=== PATIENT | female | born 1940 | race African-American/Black ===

== ENCOUNTER 2017-10-19 16:51 | Emergency (ER) | payer MEDICARE, OTHER ==
[~2017-10-19] VITALS: Ht 162.6 cm; Wt 72.6 kg
[2017-10-19] MEDS ORDERED: SODIUM CHLORIDE 0.9% 1000ML 1,000 ML IV SCH (18:45)
[2017-10-19 20:08] VITALS: BP 132/70
== END 2017-10-19 20:24 | disposition home or self-care (01) ==
LOC: FSED 16:51
DX: R55 Syncope and collapse (principal); R11.0 Nausea; R10.84 Generalized abdominal pain; N39.0 Urinary tract infection, site not specified
CPT/HCPCS: 74018; 80053; 81003; 85025; 99283; J7030

== ENCOUNTER 2018-09-14 17:31 | Emergency (ER) | payer MEDICARE, OTHER ==
[~2018-09-14] VITALS: Ht 162.6 cm; Wt 62.6 kg
--- NOTE | 2018-09-14 18:21 | Diagnostic Imaging Report ---
EXAMINATION: CXR 2 VIEW - HOPD INDICATION: Cough. Congestion. ^[id number] ^1800 COMPARISON: None FINDINGS: TUBES and LINES: None. LUNGS: Surgical clips in the right hilar region with volume loss in the right chest. There is no evidence of pneumonia or pulmonary edema. PLEURA: No pleural effusion or pneumothorax. HEART AND MEDIASTINUM: The cardiomediastinal silhouette is unremarkable. BONES AND SOFT TISSUES: No acute osseous lesion. Soft tissues are unremarkable. UPPER ABDOMEN: No free air under the diaphragm. IMPRESSION: Surgical clips in the right hilar region with volume loss in the right chest Signed by: Dr. Roel Mendoza M.D. on 09/14/2018 6:18 PM
--- NOTE | 2018-09-14 18:42 | NUR ---
REPORT TO JOSE GOMES
--- NOTE | 2018-09-14 18:42 | NUR ---
assumed care of pt
[2018-09-14 19:04] VITALS: BP 153/82
== END 2018-09-14 18:56 | disposition home or self-care (01) ==
LOC: FSED 17:31
DX: J44.0 Chronic obstructive pulmonary disease with (acute) lower respiratory infection (principal); J20.8 Acute bronchitis due to other specified organisms
CPT/HCPCS: 71046; 83518; 87400; 99283

== ENCOUNTER 2018-10-06 18:57 | Inpatient (IN) | payer MEDICARE, OTHER ==
[~2018-10-06] VITALS: Ht 160 cm; Wt 65.8 kg
--- OUTSIDE RECORDS SUMMARY | 2018-10-06 19:00 | XMS REPORT | Clinical Summary ---
Author Author CRISTIANA [facility] Address Unknown Phone Unavailable Care Team Providers Care Educational Director Name Role Phone System, Provider Not In PCP Unavailable Allergies Comments Active Allergy Reactions Severity Noted Date bleeding Salicylates Other (See 04/04/2013 Comments) Penicillins Itching High 04/04/2013 Medications End Date Status Medication Sig Dispensed Refills Start Date Active loratadine (CLARITIN) 10 Take 10 mg by 0 mg tablet mouth daily. Active omeprazole (PRILOSEC) 40 Take 40 mg by 0 MG capsule mouth daily. Active ferrous sulfate 325 (65 Take 325 mg 0 FE) MG tablet by mouth 3 (three) times daily with meals. Active calcium carbonate Take 600 mg 0 (OS-JERONIMO) 600 mg (1,500 by mouth 2 mg) Tab (two) times daily with breakfast and dinner. Active tgfwxmgm-irfv-baj-folic Take by 0 acid mouth. (NVYFDVDJPTHA-DZSP-FFFKLF LS-FOLIC ACID) 3,500-18-0.4 unit-mg-mg Chew Active b complex vitamins tablet Take 1 tablet 0 by mouth daily. Active alendronate (FOSAMAX) 35 Take 35 mg by 0 MG tablet mouth every 7 days. Take in the morning with a full glass of water, on an empty stomach, and do not take anything else by mouth or lie down for the next 30 min. Active budesonide-formoterol Inhale 2 0 (SYMBICORT) 80-4.5 puffs by mcg/actuation inhaler mouth via inhaler 2 (two) times daily. Active simvastatin (ZOCOR) 10 MG Take 10 mg by 0 tablet mouth nightly. Active ascorbic acid (ASCORBIC Take 500 mg 0 ACID WITH ALEXYS HIPS) 500 by mouth MG tablet daily. Active cycloSPORINE (RESTASIS) 1 drop 2 0 0.05 % ophthalmic (two) times emulsion daily. Active albuterol (PROVENTIL) 2.5 Take 2.5 mg 0 mg /3 mL (0.083 %) by nebulizer solution nebulization every 6 (six) hours as needed. Active fluticasone (FLONASE) 50 1 spray by 0 mcg/actuation nasal spray Nasal route daily. Active famotidine (PEPCID) 20 MG Take 20 mg by 0 tablet mouth 2 (two) times daily. Active MULTIVIT WITH Take by 0 IRON-MINERALS mouth. (CENTRAVITES 50 PLUS ORAL) Active inhalational spacing Use with the 1 each 0 device (AEROCHAMBER) Spcr inhaler. 7 02/07/2018 albuterol HFA (VENTOLIN Inhale 2 1 Inhaler 0 HFA) 90 mcg/actuation puffs by 7 inhaler mouth via inhaler every 4 (four) hours as needed for Wheezing. Active Problems Not on file Social History Date Tobacco Use Types Packs/Day Years Used Former Smoker Smokeless Tobacco: Never Used Alcohol Use Drinks/Week oz/Week Comments No Sex Assigned at Date Recorded Not on file Industry Job Start Date Occupation Not on file Not on file Not on file Travel End Travel History Travel Start No recent travel history available. Last Filed Vital Signs Not on file Plan of Treatment Not on file Results Not on fileafter 10/05/2017 Insurance Payer Benefit Subscriber ID Type Phone Address Plan / Group [facility] - [facility] [place] [facility] [place] MEDICARE MGD CARE MEDICARE HMO
--- OUTSIDE RECORDS SUMMARY | 2018-10-06 19:00 | XMS REPORT ---
Author [facility] Address Unknown Phone Unavailable Care Team Providers Care Legal Clerk Name Role Phone TARYNLizetteENCE Unavailable Unavailable ZANA NAJERA Unavailable Unavailable Problems This patient has no known problems. Allergies, Adverse Reactions, Alerts This patient has no known allergies or adverse reactions. Medications This patient has no known medications. Encounters Start Date/Time End Date/Time Encounter Type Admission Type Attending [facility] Care Facility Care Department Encounter ID 2018-05-21 08:28:22 2018-05-21 08:28:22 Outpatient [facility] [id number] 2018-05-14 09:45:29 2018-05-14 09:45:29 Outpatient [facility] [id number] 2018-04-05 00:00:00 2018-04-05 00:00:00 Outpatient [facility] [id number] 2018-03-26 14:57:32 2018-03-26 14:57:32 Outpatient [facility] [id number] 2018-02-26 13:11:15 2018-02-26 13:11:15 Outpatient [facility] [id number] 2018-02-10 08:41:36 2018-02-10 08:41:36 Outpatient [facility] [id number] 2018-02-02 09:12:24 2018-02-02 09:12:24 Outpatient [facility] [id number] 2018-02-02 09:08:47 2018-02-02 09:08:47 Outpatient [facility] [id number] 2018-02-02 09:04:50 2018-02-02 09:04:50 Outpatient [facility] [id number] 2018-02-02 07:49:13 2018-02-02 07:49:13 Outpatient [facility] [id number] 2018-01-25 00:00:00 2018-01-25 00:00:00 Outpatient [facility] [id number] 2018-01-22 08:37:08 2018-01-22 08:37:08 Outpatient [facility] [id number] 2017-12-08 12:13:09 2017-12-08 12:13:09 Outpatient [facility] [id number] 2017-12-08 00:00:00 2017-12-08 00:00:00 Outpatient [facility] [id number] 2017-09-25 13:55:19 2017-09-25 13:55:19 Outpatient [facility] [id number] 2017-09-15 09:00:00 2017-09-15 09:00:00 Outpatient [facility] [id number] 2017-09-15 00:00:00 2017-09-15 00:00:00 Outpatient [facility] [id number] 2017-09-03 14:54:45 2017-09-03 14:54:45 Outpatient [facility] [id number] 2017-09-03 14:01:28 2017-09-03 14:01:28 Outpatient [facility] [id number] 2017-09-03 10:56:05 2017-09-03 10:56:05 Outpatient [facility] [id number] 2017-09-03 09:29:06 2017-09-03 09:29:06 Outpatient [facility] [id number] 2017-09-03 00:00:00 2017-09-03 00:00:00 Outpatient [facility] [id number] Results Test Description Test Time Test Comments Text Results Atomic Results Result Comments CXR 2 VIEW - HOPD 2018-09-14 18:16:00 [place] [address] Patient Name: JOSH ROCK MR #: [id number] : 1940 Age/Sex: 78/F Req #: [id number] Adm Physician: Ordered by: COLUMBA CENTENO MD Report #: [id number] Location: [facility] Room/Bed: Procedure: [id number] HOPD/CXR 2 VIEW - HOPD Exam Date: 09/14/18 Exam Time: 1800 REPORT STATUS: Signed EXAMINATION: CXR 2 VIEW - HOPD INDICATION: Cough. Congestion. [id number] 1800 COMPARISON: None FINDINGS: TUBES and LINES: None. LUNGS: Surgical clips in the right hilar region with volume loss in the right chest. There is no evidence of pneumonia or pulmonary edema. PLEURA: No pleural effusion or pneumothorax. HEART AND MEDIASTINUM: The cardiomediastinal silhouette is unremarkable. BONES AND SOFT TISSUES: No acute osseous lesion. Soft tissues are unremarkable. UPPER ABDOMEN: No free air under the diaphragm. IMPRESSION: Surgical clips in the right hilar region with volume loss in the right chest Signed by: Dr. Roel Mendoza M.D. on 09/14/2018 6:18 PM Dictated By: ROEL MENDOZA MD, MD 17 Transcribed By: JARROD on 09/14/181817 COPY TO: COLUMBA CENTENO MD CT, CHEST WITH IV CONTRAST- PE TEST DESIGN 2017-02-07 00:28:00 Reason for exam:- >COUGHsince last nightReason for exam:->CHEST PAINWhat is the patient's sedation requirement?->No Sedation FINAL REPORT EXAMINATION: CHEST CT / PE PROTOCOL CLINICAL HISTORY: CHEST PAIN, SHORTNESS OF BREATH COMPARISON EXAMINATION: NONE TECHNIQUE: Following the administration of I.V. contrast, axial images were acquired through the pulmonary arteries during the early arterial phase of imaging. Following a brief delay, additional axial tomographic images were acquired through the thorax. Following postprocessing, coronal and sagittal reformatted images were created and reviewed. The exam was performed according to our departmental dose optimization program which includes automated exposure control, adjustment of the mA and/or kV according to patient's size and/or use of iterative reconstructive technique. FINDINGS: Postoperative changes are noted in the left breast including multiple surgical clips. Emphysematous architectural distortion is noted including left apical bullous disease. Thin curvilinear subpleural opacities are noted in both lungs which are morphologically suggestive of scarring and/or subsegmental atelectasis. No evidence of a pneumonia, pulmonary edema, pleural effusion, pneumothorax or pneumomediastinum. There is mild nonspecific elevation of the right hem idiaphragm. The trachea is mildly dilated and ectatic. Senescent changes of aging are also noted involving the trachea and central airways. There is narrowing of the right mainstem bronchus, etiology indeterminant but likely chronic in nature. No evidence of a discrete endobronchial lesion or significant debris. No evidence of a discrete filling defect/embolus within the pulmonary arteries. Mild dilatation of the central pulmonary arteries is nonspecific but can be associated with pulmonary hypertension. The thoracic aorta is mildly ectatic but normal in caliber. No evidence of an aortic dissection. The heart is mild to moderately enlarged. No evidence of a pericardial effusion. The esophagus is decompressed. Small calcifications or surgical clips are noted in the mediastinum as well as the dependent portion of the right pleural space. No evidence of pathologically enlarged mediastinal or axillary lymph nodes. Limited images of the upper abdomen demonstrate multiple gallstones within the incomp letely visualized gallbladder. No definite evidence of an acute osseous abnormality. IMPRESSION: Emphysema. Thin curvilinear parenchymal lung opacities, nonspecific but morphologically suggestive of scarring and/or atelectasis. No evidence of a discrete pneumonia. Cardiac enlargement. Mild dilatation of the central pulmonary arteries, possible pulmonary arterial hypertension. No evidence of a PE. Cholelithiasis. Signed: Luc Grace MDReport Verified Date/Time: 02/07/2017 00:28:47 Reading Location: [address] Reading Room D-DIMER 2017-02-06 22:42:00 D-DIMER QUANTITATIVE (NING) (test cvao=674) 0.83 MG/L FEU <0.50 REGARDING D-DIMER RESULTS: Results of this D-Dimer test should always be interpr eted in conjunction with the patient's medical history, clinical presentation an d other findings. DVT clinical diagnosis should not be based on the results of I NNOVANCE D-Dimer alone.B-TYPE NATRIURETIC FACTOR (BNP)2017-02-06 22:09:00* Test Item Value Reference Range Comments B-TYPE NATRIURETIC PEPTIDE (NING) (test xgod=862) 19 pg/mL 0-100 RAD, CHEST, 2 [id number] 22:08:00Reason for exam:->COUGHsince last nightReason for exam:->CHEST PAINShould this be performed at the bedside?->No FINAL REPORT Examination: Two view Chest X-ray. CLINICAL HISTORY: Cough and chest pain COMPARISON: 11/04/2014 and 04/27/2010 The cardiac s ilhouette is within normal limits for size. The aorta is elongated. Postsurgica l changes are present in the right mid and upper chest and there is a stable jessica earance of the prominent bilateral stas. Also stable is blunting of the right co stophrenic sulcus, probably pleural thickening/scarring. There is no focal cons olidation, pneumothorax or acute bony abnormality. Surgical clips overlie the le ft breast which is asymmetrically small. IMPRESSION: No acute abnormality or sig nificant interval change from multiple previous examinations dating back to 2009. Signed: Alex Juares MDReport Verified Date/Time: 02/06/2017 22:08: 06 Reading Location: [address] Reading Room Electronically si gned by: ALEX JUARES M.D. on 02/06/2017 10:08 PM RAPID [id number] 22:05:00* Test Item Value Reference Range Comments RAPID CKMB (BEAKER) (test avwt=8751) 1.3 ng/mL 0.0-4.3 RAPID TROPONIN [id number] 22:05:00* Test Item Value Reference Range Comments RAPID TROPONIN I (BEAKER) (test yyfd=6789) < ng/mL <0.05 BASIC METABOLIC [id number] 22:03:00* Test Item Value Reference Range Comments SODIUM (BEAKER) (test uuzr=144) 140 meq/L 135-148 POTASSIUM (BEAKER) (test ihdy=306) 3.8 meq/L 3.6-5.5 CHLORIDE (BEAKER) (test rqvr=236) 101 meq/L 98-106 CO2 (BEAKER) (test gown=527) 29 meq/L 24-32 BLOOD UREA NITROGEN (BEAKER) (test nemt=011) 11 mg/dL 10-26 CREATININE (BEAKER) (test mhir=466) 0.83 mg/dL 0.50-1.20 GLUCOSE RANDOM (BEAKER) (test jbng=068) 88 mg/dL 70-110 CALCIUM (BEAKER) (test mlns=209) 9.2 mg/dL 8.5-10.5 EGFR (BEAKER) (test yoek=0896) 81 mL/min/1.73 sq m ESTIMATED GFR IS NOT ACCURATE CREATININE CLEARANCE IN PREDICTING GLOMERULAR FILTRATION RATE. ESTIMATED GFR IS NOT APPLICABLE FOR DIALYSIS PATIENTS. CBC W/PLT COUNT & AUTO [id number] 21:52:00* Test Item Value Reference Range Comments WHITE BLOOD CELL COUNT (BEAKER) (test hgjw=843) 6.6 10e3/ L 4.0-10.0 RED BLOOD CELL COUNT (BEAKER) (test vbha=105) 4.48 10e6/ L 4.00-5.00 HEMOGLOBIN (BEAKER) (test bnae=795) 9.2 g/dL 12.0-15.0 HEMATOCRIT (BEAKER) (test agzk=576) 30.2 % 36.0-45.0 MEAN CORPUSCULAR VOLUME (BEAKER) (test qmev=107) 67.5 fL 82.0-99.0 MEAN CORPUSCULAR HEMOGLOBIN (BEAKER) (test ptxq=773) 20.5 pg 27.0-33.0 MEAN CORPUSCULAR HEMOGLOBIN CONC (BEAKER) (test mtok=942) 30.4 g/dL 32.0-36.0 RED CELL DISTRIBUTION WIDTH (BEAKER) (test mkpj=005) 15.8 % 10.3-14.2 PLATELET COUNT (BEAKER) (test ovrn=835) 322 10e3/ L 150-430 MEAN PLATELET VOLUME (BEAKER) (test lodk=142) 8.8 fL 6.5-10.5 NEUTROPHILS RELATIVE PERCENT (BEAKER) (test czlp=836) 53 % LYMPHOCYTES RELATIVE PERCENT (BEAKER) (test gdww=450) 34 % MONOCYTES RELATIVE PERCENT (BEAKER) (test bxzn=758) 9 % EOSINOPHILS RELATIVE PERCENT (BEAKER) (test rzmx=539) 4 % BASOPHILS RELATIVE PERCENT (BEAKER) (test zzgq=643) 0 % NEUTROPHILS ABSOLUTE COUNT (BEAKER) (test zlzr=093) 3.47 10e3/ L 1.80-8.00 LYMPHOCYTES ABSOLUTE COUNT (BEAKER) (test mhss=237) 2.26 10e3/ L 1.48-4.50 MONOCYTES ABSOLUTE COUNT (BEAKER) (test vqfj=981) 0.58 10e3/ L 0.00-1.30 EOSINOPHILS ABSOLUTE COUNT (BEAKER) (test yfyn=445) 0.24 10e3/ L 0.00-0.50 BASOPHILS ABSOLUTE COUNT (BEAKER) (test mriz=743) 0.03 10e3/ L 0.00-0.20
[2018-10-06] MEDS ORDERED: SODIUM CHLORIDE 0.9% 1000ML 1,000 ML IV SCH (19:30)
--- NOTE | 2018-10-06 21:39 | Diagnostic Imaging Report ---
EXAMINATION: CT of the abdomen and pelvis with contrast. TECHNIQUE: Helical CT images of the abdomen and pelvis were performed from the lung bases to the lesser trochanters after the intravenous administration of 100 cc of Isovue 300 and the oral administration of none. Coronal and sagittal reformatted images were obtained.Dose modulation, iterative reconstruction, and/or weight based adjustment of the mA/kV was utilized to reduce the radiation dose to as low as reasonably achievable. COMPARISON: None. CLINICAL HISTORY:Lower abdominal pain DISCUSSION: ABDOMEN/PELVIS: LOWER THORAX:Unremarkable. HEPATOBILIARY: No focal hepatic lesions. No intra-or extrahepatic biliary ductal dilation. Cholecystectomy. SPLEEN: No splenomegaly. PANCREAS: No focal masses or ductal dilatation. ADRENALS: No adrenal nodules. KIDNEYS/URETERS: No hydronephrosis or solid mass lesions. 1.2 cm cyst in the right kidney. PELVIC ORGANS/BLADDER: Bladder is normal. Hysterectomy. PERITONEUM/RETROPERITONEUM: No free air or fluid. LYMPH NODES: No intra-abdominal, retroperitoneal, pelvic or inguinal lymphadenopathy. VESSELS: Vascular calcifications. GI TRACT: No obstruction. Diverticulosis without inflammatory change. The distal appendix measures 1 cm near in dimension with mild inflammatory change on axial image 49 and 50 BONES AND SOFT TISSUE: No bony destructive lesions. No soft tissue abnormalities. IMPRESSION: Mildly dilated appendix with mild inflammatory change may reflect appendicitis. Colonic diverticulosis without inflammatory change. Signed by: Dr. Ming Fritz M.D. on 10/06/2018 9:35 PM
[2018-10-06] MEDS ORDERED: ONDANSETRON HCL INJ 2MG/ML 2ML 2 MG/ML VIAL IV PRN (22:15)
[2018-10-06] MEDS ORDERED: MORPHINE SULFATE INJ 4 MG/ML INJ 1ML IV PRN (22:15)
--- OUTSIDE RECORDS SUMMARY | 2018-10-06 22:21 | XMS REPORT | Clinical Summary ---
Author Author CRISTIANA [facility] Address Unknown Phone Unavailable Care Team Providers Care Batch Tank Controller Name Role Phone System, Provider Not In [...] times daily with breakfast and dinner. Active pzsiondm-tosn-gbw-folic Take by 0 acid mouth. (WQKOLAQBRDMK-CWUE-KSGIOY LS-FOLIC ACID) 3,500-18-0.4 unit-mg-mg Chew Active b [...] Address Plan / Group [facility]ICA[facility] Medicaid CARE [facility] Contracted PLAN [facility] xxxxxxxxx MEDICARE MGD CARE MEDICARE HMO
--- NOTE | 2018-10-06 22:35 | NUR ---
New pyxsis being installed will not allow me to over ride to pull out any medications that have been placed in bins, medicaiotns are also not being loaded by pharmacy, Serge GOMES at main [facility] aware of situation
[2018-10-06] MEDS ORDERED: LEVOTHYROXINE50 MCG PO (23:19)
[2018-10-06] MEDS ORDERED: ADVAIR HFA 115-12 GM (23:19)
[2018-10-06] MEDS ORDERED: PROAIR HFA INH8.5 GM INH (23:19)
[2018-10-06] MEDS ORDERED: PEPCID20 MG (23:19)
[2018-10-06] MEDS ORDERED: SYMBICORT 16010.2 GM INH (23:19)
[2018-10-06] MEDS ORDERED: SIMVASTATIN40 MG PO (23:19)
[2018-10-06] MEDS: D5.45%NS/KCL 20MEQ 1,000 ML IV SCH (23:57)
[2018-10-06] MEDS: CIPROFLOXACIN 400 MG/D5W 200ML 200 ML IV SCH (23:57)
[2018-10-07] VITALS (7 sets, daily range): BP systolic 123–159; BP diastolic 63–74
[2018-10-07] MEDS: METRONIDAZOLE 500MG/NS 100ML 100 ML IV SCH ×5 (00:59→23:25)
[2018-10-07] MEDS ORDERED: CETIRIZINE HCL10 MG PO (01:33)
[2018-10-07] MEDS ORDERED: FLUTICASONE PRO16 GM NS (01:33)
[2018-10-07] MEDS ORDERED: ULTRAM 50MG50 MG PO (01:33)
[2018-10-07] MEDS ORDERED: ALENDRONATE SOD35 MG PO (01:33)
[2018-10-07] MEDS ORDERED: TYLENOL WITH C1 EACH PO (01:33)
[2018-10-07] MEDS ORDERED: ALBUTEROL0.63 MG/3 NEB (01:33)
[2018-10-07] MEDS ORDERED: GUAIFENESIN-CO118 ML PO (01:33)
[2018-10-07] MEDS ORDERED: CENTRUM SILVER1 EAC3 PO (01:33)
[2018-10-07] MEDS ORDERED: FERROUS SULFAT325 M1 PO (01:33)
[2018-10-07] MEDS ORDERED: AMITRIPTYLINE H25 MG PO (01:33)
[2018-10-07] MEDS ORDERED: KENALOG TOP (01:33)
[2018-10-07] MEDS ORDERED: LORATADINE10 MG PO (01:33)
[2018-10-07] MEDS ORDERED: CALCIUM 600 +1 EAC2 PO (01:33)
[2018-10-07] MEDS ORDERED: CYCLOBENZAPRINE10 MG PO (01:33)
[2018-10-07] MEDS: D5.45%NS/KCL 20MEQ 1,000 ML IV SCH ×3 (06:07→22:07)
[2018-10-07 07:08] LABS: BASOPHILS % 0.3 % (0.0-1.0); EOSINOPHILS # (AUTO) 0.3 (0.0-0.4); EOSINOPHILS % 4.2 % (0.0-6.0); HEMATOCRIT 29.6 % (34.2-44.1); HEMOGLOBIN 9.4 g/dL (12.0-16.0); LYMPHOCYTES # (AUTO) 2.2 (1.0-3.2); MEAN CORPUSCULAR HEMOGLOBIN 20.5 pg (28-32); MEAN CORPUSCULAR HGB CONC 31.8 g/dL (31-35); MEAN CORPUSCULAR VOLUME 64.6 fL (81-99); MONOCYTES # (AUTO) 0.5 (0.2-0.8); MONOCYTES % 8.4 % (4.4-11.3); NEUTROPHILS % 50.8 % (38.7-80.0); PLATELET COUNT 279 x10e3/uL (140-360); RED BLOOD COUNT 4.58 x10e6/uL (3.6-5.1); RED CELL DISTRIBUTION WIDTH 16.4 % (11.7-14.4)
[2018-10-07 07:26] LABS: ALANINE AMINOTRANSFERASE 9 IU/L (0-55); ALBUMIN 3.6 g/dL (3.5-5.0); ALBUMIN/GLOBULIN RATIO 1.3 (0.8-2.0); ALKALINE PHOSPHATASE 65 IU/L (40-150); ANION GAP 9.6 mmol/L (8-16); BLOOD UREA NITROGEN 6 mg/dL (7-26); BUN/CREATININE RATIO 8 (6-25); CALCIUM 9.3 mg/dL (8.4-10.2); CARBON DIOXIDE 26 mmol/L (22-29); CHLORIDE 109 mmol/L (98-107); CREATININE, SERUM 0.75 mg/dL (0.57-1.11); EST GLOMERULAR FILTRATION RATE > 60 ML/MIN (60-); GLUCOSE 99 mg/dL (74-118); POTASSIUM 3.6 mmol/L (3.5-5.1); SODIUM 141 mmol/L (136-145)
--- NOTE | 2018-10-07 07:35 | NUR ---
Rcvd patient in report this am. Patient is asleep in bed at this time. No s/s of distress noted
[2018-10-07] MEDS ORDERED: ONDANSETRON HCL INJ 2MG/ML 2ML 2 MG/ML VIAL IV PRN (08:15)
[2018-10-07] MEDS ORDERED: ACETAMINOPHEN 325 MG TAB PO PRN (08:15)
[2018-10-07] MEDS ORDERED: ALBUTEROL/IPRATROPIUM 3 ML NEB NEB PRN (08:15)
[2018-10-07] MEDS ORDERED: HYDRALAZINE HCL 20 MG/ML VIAL IV PRN (08:15)
[2018-10-07] MEDS ORDERED: TRAMADOL HCL 50 MG TAB PO PRN ×2 (08:15→08:30)
[2018-10-07 08:32] LABS: CLARITY,URINE CLEAR (CLEAR); COLOR,URINE YELLOW (YELLOW)
[2018-10-07 08:33] LABS: BILIRUBIN,URINE NEGATIVE (NEGATIVE); KETONES,URINE NEGATIVE (NEGATIVE); LEUKOCYTE ESTERASE ,URINE TRACE (NEGATIVE); NITRITE,URINE NEGATIVE (NEGATIVE); PROTEIN,URINE DIPSTICK NEGATIVE (NEGATIVE); URINE UROBILINOGEN 0.2 mg/dL (0.2 - 1)
[2018-10-07] MEDS: CIPROFLOXACIN 400 MG/D5W 200ML 200 ML IV SCH ×2 (08:43→21:08)
[2018-10-07] MEDS ORDERED: LEVOTHYROXINE SODIUM 50 MCG TAB PO SCH (09:00)
--- NOTE | 2018-10-07 09:30 | NUR ---
Patient is AAOx2. Some confusion at times. Very hard of hearing. Lung collins clear to auscultation. Bowel sounds present x4. Patient c/o pain in her abdomen in the middle after clear liquids. No nausea or vomiting noted. Family at bedside. Right AC iv in place. IV fluids infusing. Patient ambulates with assist
[2018-10-07 10:37] LABS: BACTERIA,URINE RARE /HPF; WBC,URINE (MAN) 0-5 /HPF (0-5)
[2018-10-07 10:38] LABS: EPITHELIAL CELLS,URINE RARE /LPF
[2018-10-07] MEDS: LORATADINE 10 MG TAB PO SCH (11:21)
[2018-10-07] MEDS: FLUTICASONE PROPIONATE NASAL SPRAY NS SCH (11:22)
[2018-10-07] MEDS ORDERED: ONDANSETRON HCL 4 MG ORAL DISINTEGRATING TAB PO PRN (14:00)
--- NOTE | 2018-10-07 14:14 | NUR ---
Patient tolerated her clear liquids for lunch. No c/o pain at this time. Family at bedside
--- NOTE | 2018-10-07 14:49 | Consultation ---
DATE OF CONSULTATION: 10/07/2018 HISTORY OF PRESENT ILLNESS: The patient is a 78-year-old female, who presents with complaints of abdominal pain. Says the pain is on the right side of her abdomen and right flank. She has not had any nausea or vomiting. She went to the emergency room and was evaluated. CT scan of the abdomen and pelvis, which revealed a prominent appendix with some slight inflammation around that. The patient says the pain has persisted, unchanged. She has not had any fever. PAST MEDICAL HISTORY: Significant for multiple medical problems; hypothyroidism, hypercholesterolemia, and chronic obstructive pulmonary disease. MEDICATIONS: She is on multiple medications, which are listed in the chart. ALLERGIES: PENICILLIN AND ASPIRIN. PAST SURGICAL HISTORY: She had multiple previous surgeries including lung surgery for cancer, hysterectomy, and cholecystectomy. FAMILY HISTORY: Noncontributory. SOCIAL HISTORY: The patient does not smoke cigarettes or drink alcohol. REVIEW OF SYSTEMS: She has not had any fever. No weight loss, no diarrhea. PHYSICAL EXAMINATION: GENERAL: The patient is awake and alert, in no distress. VITAL SIGNS: Normal. She is afebrile. HEENT: There is no scleral icterus. NECK: No masses. LUNGS: Equal breath sounds are clear bilaterally. CARDIAC: Regular rate and rhythm. Normal S1, S2 without murmur, S3, or S4. There is no jugular venous distention. ABDOMEN: Soft. There is mild right lower quadrant tenderness. There is no mass. There were no signs of peritonitis. There is no organomegaly. EXTREMITIES: Have no edema. NEUROLOGIC: Intact. LAB TESTS: White blood cell count at the [facility] was 7.2 with normal differential, hemoglobin 9.7, and hematocrit 30.9. Chemistries were essentially normal. ASSESSMENT: A 78-year-old female with abdominal pain with prominence of the appendix on CT scan, questionable inflammation around it. Clinical findings do not suggest acute appendicitis. PLAN: Plan is to observe the patient. She is anemic also, etiology of this is not clear. She was started on liquid diet. Plan to re-evaluate her later. At this point, there are no signs of peritonitis. No findings that would warrant immediate surgical intervention. Thank you for asking me to see Ms. Krishnan. MD TOMAS Ba/GABRIELE /[id number]
--- NOTE | 2018-10-07 16:00 | NUR ---
Call placed to Dr. Wade to inquire if we could advance patient's diet. Awaiting call back
[2018-10-07] MEDS: AMITRIPTYLINE HCL 25 MG TAB PO SCH (21:00)
[2018-10-07] MEDS: SIMVASTATIN 40 MG TAB PO SCH (21:08)
[2018-10-08] VITALS (8 sets, daily range): BP systolic 129–150; BP diastolic 69–81
[2018-10-08 03:26] LABS: BASOPHILS % 0.3 % (0.0-1.0); EOSINOPHILS # (AUTO) 0.3 (0.0-0.4); EOSINOPHILS % 5.6 % (0.0-6.0); HEMATOCRIT 30.6 % (34.2-44.1); HEMOGLOBIN 9.6 g/dL (12.0-16.0); LYMPHOCYTES # (AUTO) 2.3 (1.0-3.2); LYMPHOCYTES % 38.7 % (18.0-39.1); MEAN CORPUSCULAR HEMOGLOBIN 20.3 pg (28-32); MEAN CORPUSCULAR HGB CONC 31.4 g/dL (31-35); MEAN CORPUSCULAR VOLUME 64.6 fL (81-99); MONOCYTES # (AUTO) 0.5 (0.2-0.8); MONOCYTES % 8.8 % (4.4-11.3); NEUTROPHILS # (AUTO) 2.8 (2.1-6.9); NEUTROPHILS % 46.4 % (38.7-80.0); PLATELET COUNT 290 x10e3/uL (140-360); RED BLOOD COUNT 4.74 x10e6/uL (3.6-5.1); RED CELL DISTRIBUTION WIDTH 16.9 % (11.7-14.4)
[2018-10-08] MEDS: D5.45%NS/KCL 20MEQ 1,000 ML IV SCH (03:26)
[2018-10-08 03:45] LABS: ANION GAP 10.1 mmol/L (8-16); BLOOD UREA NITROGEN 8 mg/dL (7-26); BUN/CREATININE RATIO 10 (6-25); CALCIUM 9.1 mg/dL (8.4-10.2); CARBON DIOXIDE 25 mmol/L (22-29); CHLORIDE 110 mmol/L (98-107); CREATININE, SERUM 0.78 mg/dL (0.57-1.11); EST GLOMERULAR FILTRATION RATE > 60 ML/MIN (60-); GLUCOSE 101 mg/dL (74-118); POTASSIUM 4.1 mmol/L (3.5-5.1); SODIUM 141 mmol/L (136-145)
[2018-10-08 03:54] LABS: B-TYPE NATRIURETIC PEPTIDE2 36.1 pg/mL (0-100)
[2018-10-08 04:07] LABS: FREE T4 (FREE THYROXINE) 0.86 ng/dL (0.9-1.8); THYROID STIMULATING HORMONE 1.687 uIU/mL (0.350-4.940)
[2018-10-08 04:25] LABS: FERRITIN 422.71 ng/mL (4.63-204.00)
[2018-10-08 04:41] LABS: FOLATE 17.1 ng/mL (7.0-15.4)
[2018-10-08] MEDS: METRONIDAZOLE 500MG/NS 100ML 100 ML IV SCH ×4 (05:30→23:46)
[2018-10-08] MEDS: LEVOTHYROXINE SODIUM 25 MCG TABLET PO SCH (05:30)
[2018-10-08] MEDS: POLYETHYLENE GLYCOL 3350 17 GM PACK PO SCH (09:00)
[2018-10-08] MEDS: DOCUSATE SODIUM 100 MG CAP PO SCH ×2 (09:36→17:31)
[2018-10-08] MEDS: FERROUS SULFATE 325 MG TAB PO SCH ×2 (09:36→17:31)
[2018-10-08] MEDS: PANTOPRAZOLE SOD 40 MG TABEC PO SCH (09:36)
[2018-10-08] MEDS: LORATADINE 10 MG TAB PO SCH (09:36)
[2018-10-08] MEDS: ASCORBIC ACID 500 MG TAB PO SCH ×2 (09:36→17:31)
[2018-10-08] MEDS: FLUTICASONE PROPIONATE NASAL SPRAY NS SCH (09:49)
[2018-10-08] MEDS: CIPROFLOXACIN 400 MG/D5W 200ML 200 ML IV SCH ×2 (09:56→21:18)
--- NOTE | 2018-10-08 15:37 | NUR ---
IMM EXPLAINED TO PT, SIGNED BY PT AND PLACED IN CHART COPY TO PT IN CARE TRANSITIONS FOLDER
--- NOTE | 2018-10-08 19:20 | NUR ---
Received patient in bedside report. Patient is resting in bed at this time. A&Ox3. Very hard of hearing. Lung sounds clear. Bowel sounds active. No edema noted. Skin intact. R AC 20g IV is asymptomatic, intact, and patent. Patient reports pain to abdomen when she moves too much or when she coughs. Provided patient with extra pillow and explained that splinting with pillow may decrease pain during those times. Patient demonstrated understanding. SCDs in place. Bed locked in lowest position, side rails upx2, call light in reach.
[2018-10-08] MEDS: AMITRIPTYLINE HCL 25 MG TAB PO SCH (21:18)
[2018-10-08] MEDS: SIMVASTATIN 40 MG TAB PO SCH (21:18)
[2018-10-09] VITALS (8 sets, daily range): BP systolic 99–137; BP diastolic 57–69
[2018-10-09 03:27] LABS: BASOPHILS % 0.4 % (0.0-1.0); EOSINOPHILS # (AUTO) 0.3 (0.0-0.4); HEMATOCRIT 29.6 % (34.2-44.1); HEMOGLOBIN 9.4 g/dL (12.0-16.0); LYMPHOCYTES # (AUTO) 1.7 (1.0-3.2); MEAN CORPUSCULAR HEMOGLOBIN 20.6 pg (28-32); MEAN CORPUSCULAR HGB CONC 31.8 g/dL (31-35); MEAN CORPUSCULAR VOLUME 64.8 fL (81-99); MONOCYTES # (AUTO) 0.5 (0.2-0.8); MONOCYTES % 6.4 % (4.4-11.3); NEUTROPHILS # (AUTO) 4.5 (2.1-6.9); NEUTROPHILS % 64.9 % (38.7-80.0); PLATELET COUNT 298 x10e3/uL (140-360); RED BLOOD COUNT 4.57 x10e6/uL (3.6-5.1); RED CELL DISTRIBUTION WIDTH 16.4 % (11.7-14.4)
[2018-10-09 03:40] LABS: ANION GAP 11.2 mmol/L (8-16); BLOOD UREA NITROGEN 8 mg/dL (7-26); BUN/CREATININE RATIO 10 (6-25); CALCIUM 9.1 mg/dL (8.4-10.2); CARBON DIOXIDE 26 mmol/L (22-29); CHLORIDE 110 mmol/L (98-107); CREATININE, SERUM 0.79 mg/dL (0.57-1.11); EST GLOMERULAR FILTRATION RATE > 60 ML/MIN (60-); GLUCOSE 111 mg/dL (74-118); POTASSIUM 4.2 mmol/L (3.5-5.1); SODIUM 143 mmol/L (136-145)
--- NOTE | 2018-10-09 04:45 | NUR ---
Patient resting in bed at this time. Breathing even and non-labored. No S&S of distress at this time. Bed locked in lowest position, side rails upx2, call light in reach, family member at bedside.
[2018-10-09] MEDS: METRONIDAZOLE 500MG/NS 100ML 100 ML IV SCH ×3 (06:49→17:25)
[2018-10-09] MEDS: LEVOTHYROXINE SODIUM 25 MCG TABLET PO SCH (06:49)
--- NOTE | 2018-10-09 06:50 | NUR ---
MET PATIENT DURING BEDSIDE REPORT, PATIENT ALERT AND ORIENTED TO PERSON, PLACE, TIME, AND CIRCUMSTANCES. PATIENT SHOWS NO SIGNS OF DISTRESS.
[2018-10-09] MEDS: POLYETHYLENE GLYCOL 3350 17 GM PACK PO SCH (09:00)
[2018-10-09] MEDS ORDERED: SODIUM CHLORIDE 0.9% 250ML 250 ML ONE (09:53)
[2018-10-09] MEDS: DOCUSATE SODIUM 100 MG CAP PO SCH ×2 (09:56→17:25)
[2018-10-09] MEDS: FERROUS SULFATE 325 MG TAB PO SCH ×2 (09:56→17:25)
[2018-10-09] MEDS: ASCORBIC ACID 500 MG TAB PO SCH ×2 (09:56→17:25)
[2018-10-09] MEDS: PANTOPRAZOLE SOD 40 MG TABEC PO SCH (09:56)
[2018-10-09] MEDS: FLUTICASONE PROPIONATE NASAL SPRAY NS SCH (09:56)
[2018-10-09] MEDS: LORATADINE 10 MG TAB PO SCH (09:56)
[2018-10-09] MEDS: CIPROFLOXACIN 400 MG/D5W 200ML 200 ML IV SCH ×2 (10:53→21:58)
--- NOTE | 2018-10-09 11:50 | NUR ---
Patient's IV in her right forearm has become infiltrated, IV removed, warm compress applied to right forearm area.
--- NOTE | 2018-10-09 19:25 | NUR ---
Received patient in bedside report. Patient is A&Ox3, but very hard of hearing. Family member at bedside. Lung sounds clear, bowel sounds active, skin intact, slight edema noted to BLE, non-pitting. Skin intact. R hand 20g IV asymptomatic, intact, and patent. Bed locked in lowest position, call light in reach.
[2018-10-09] MEDS: SIMVASTATIN 40 MG TAB PO SCH (21:58)
[2018-10-09] MEDS: AMITRIPTYLINE HCL 25 MG TAB PO SCH (21:58)
[2018-10-10] VITALS (8 sets, daily range): BP systolic 110–161; BP diastolic 58–73
[2018-10-10] MEDS: METRONIDAZOLE 500MG/NS 100ML 100 ML IV SCH ×4 (00:50→17:53)
[2018-10-10 03:08] LABS: BASOPHILS % 0.3 % (0.0-1.0); EOSINOPHILS # (AUTO) 0.4 (0.0-0.4); EOSINOPHILS % 5.8 % (0.0-6.0); HEMATOCRIT 28.8 % (34.2-44.1); LYMPHOCYTES # (AUTO) 1.8 (1.0-3.2); LYMPHOCYTES % 29.4 % (18.0-39.1); MEAN CORPUSCULAR HEMOGLOBIN 20.3 pg (28-32); MEAN CORPUSCULAR HGB CONC 31.3 g/dL (31-35); MONOCYTES # (AUTO) 0.5 (0.2-0.8); MONOCYTES % 7.7 % (4.4-11.3); NEUTROPHILS # (AUTO) 3.4 (2.1-6.9); NEUTROPHILS % 56.6 % (38.7-80.0); PLATELET COUNT 248 x10e3/uL (140-360); RED BLOOD COUNT 4.43 x10e6/uL (3.6-5.1); RED CELL DISTRIBUTION WIDTH 16.6 % (11.7-14.4)
[2018-10-10 03:28] LABS: ALANINE AMINOTRANSFERASE 14 IU/L (0-55); ALBUMIN 3.5 g/dL (3.5-5.0); ALKALINE PHOSPHATASE 65 IU/L (40-150); ANION GAP 10.7 mmol/L (8-16); BILIRUBIN,DIRECT 0.5 mg/dL (0.0-0.5); BLOOD UREA NITROGEN 9 mg/dL (7-26); BUN/CREATININE RATIO 12 (6-25); CALCIUM 8.8 mg/dL (8.4-10.2); CARBON DIOXIDE 25 mmol/L (22-29); CHLORIDE 108 mmol/L (98-107); CREATININE, SERUM 0.78 mg/dL (0.57-1.11); EST GLOMERULAR FILTRATION RATE > 60 ML/MIN (60-); GLUCOSE 100 mg/dL (74-118); LIPASE 12 U/L (8-78); MAGNESIUM 1.9 MG/DL (1.3-2.1); POTASSIUM 3.7 mmol/L (3.5-5.1); SODIUM 140 mmol/L (136-145)
[2018-10-10] MEDS: LEVOTHYROXINE SODIUM 25 MCG TABLET PO SCH (05:55)
--- NOTE | 2018-10-10 07:27 | NUR ---
MET PATIENT AND HER DAUGHTER FOR BEDSIDE REPORT WITH OFF-GOING NURSE, JUAN, PATIENT DENIED PAIN, PATIENT ALERT AND ORIENT TO PERSON, PLACE, TIME, AND SITUATION, PATIENT SHOWS NO SIGNS OF DISTRESS.
[2018-10-10] MEDS: POLYETHYLENE GLYCOL 3350 17 GM PACK PO SCH (09:00)
[2018-10-10] MEDS: FLUTICASONE PROPIONATE NASAL SPRAY NS SCH (10:38)
[2018-10-10] MEDS: FERROUS SULFATE 325 MG TAB PO SCH ×2 (10:38→17:52)
[2018-10-10] MEDS: LORATADINE 10 MG TAB PO SCH (10:38)
[2018-10-10] MEDS: PANTOPRAZOLE SOD 40 MG TABEC PO SCH (10:38)
[2018-10-10] MEDS: DOCUSATE SODIUM 100 MG CAP PO SCH ×2 (10:38→17:52)
[2018-10-10] MEDS: ASCORBIC ACID 500 MG TAB PO SCH ×2 (10:39→17:52)
[2018-10-10] MEDS: CIPROFLOXACIN 400 MG/D5W 200ML 200 ML IV SCH ×2 (10:39→22:03)
--- NOTE | 2018-10-10 19:06 | NUR ---
Received patient in report. Patient is resting in bed at this time. Daughter at bedside. L hand 20g IV asymptomatic, intact, and patent. Bed locked in lowest position, side rails upx2, call light in reach.
[2018-10-10] MEDS: AMITRIPTYLINE HCL 25 MG TAB PO SCH (22:03)
[2018-10-10] MEDS: SIMVASTATIN 40 MG TAB PO SCH (22:03)
[2018-10-11] VITALS: BP 124/64
[2018-10-11] MEDS: METRONIDAZOLE 500MG/NS 100ML 100 ML IV SCH ×2 (00:36→06:07)
[2018-10-11 03:40] LABS: BASOPHILS % 0.7 % (0.0-1.0); EOSINOPHILS # (AUTO) 0.3 (0.0-0.4); EOSINOPHILS % 5.8 % (0.0-6.0); HEMATOCRIT 28.5 % (34.2-44.1); LYMPHOCYTES # (AUTO) 1.6 (1.0-3.2); LYMPHOCYTES % 26.7 % (18.0-39.1); MEAN CORPUSCULAR HEMOGLOBIN 20.4 pg (28-32); MEAN CORPUSCULAR HGB CONC 31.6 g/dL (31-35); MEAN CORPUSCULAR VOLUME 64.6 fL (81-99); MONOCYTES # (AUTO) 0.5 (0.2-0.8); MONOCYTES % 8.7 % (4.4-11.3); NEUTROPHILS # (AUTO) 3.4 (2.1-6.9); NEUTROPHILS % 57.9 % (38.7-80.0); PLATELET COUNT 244 x10e3/uL (140-360); RED BLOOD COUNT 4.41 x10e6/uL (3.6-5.1); RED CELL DISTRIBUTION WIDTH 16.4 % (11.7-14.4)
[2018-10-11 03:57] LABS: ANION GAP 9.6 mmol/L (8-16); BLOOD UREA NITROGEN 7 mg/dL (7-26); BUN/CREATININE RATIO 10 (6-25); CALCIUM 8.8 mg/dL (8.4-10.2); CARBON DIOXIDE 26 mmol/L (22-29); CHLORIDE 109 mmol/L (98-107); CREATININE, SERUM 0.73 mg/dL (0.57-1.11); EST GLOMERULAR FILTRATION RATE > 60 ML/MIN (60-); GLUCOSE 94 mg/dL (74-118); MAGNESIUM 1.8 MG/DL (1.3-2.1); POTASSIUM 3.6 mmol/L (3.5-5.1); SODIUM 141 mmol/L (136-145)
[2018-10-11 04:00] VITALS: BP 118/58
[2018-10-11] MEDS: LEVOTHYROXINE SODIUM 25 MCG TABLET PO SCH (06:07)
[2018-10-11] MEDS ORDERED: ASCORBIC ACID500 MG PO (06:59)
[2018-10-11] MEDS ORDERED: COLACE100 MG PO (06:59)
[2018-10-11] MEDS ORDERED: ZOFRAN4 MG PO (06:59)
[2018-10-11] MEDS ORDERED: ULTRAM 50MG50 MG PO (06:59)
[2018-10-11] MEDS ORDERED: PROTONIX40 MG/ML PO (06:59)
[2018-10-11] MEDS ORDERED: FERROUS SULFAT325 MG PO (06:59)
[2018-10-11] MEDS ORDERED: MIRALAX17 GM PO (06:59)
--- NOTE | 2018-10-11 07:10 | NUR ---
PT RESTING IN BED AA0X3. (HARD OF HEARING) DAUGHTER IS AT BEDSIDE. PT DENIES PAIN. IV TO THE RIGHT HAND WITH IV ABX RUNNING. SITE IS CLEAN AND DRY CALL LIGHT IS WITHIN EASY REACH, BED SIDE RAILSX2, BED WHEELS LOCKED, INSTRUCTED TO CALL FOR ASSISTANCE IF NEEDED
[2018-10-11 07:50] VITALS: BP 134/72
[2018-10-11 08:00] VITALS: BP 134/72
[2018-10-11] MEDS: ASCORBIC ACID 500 MG TAB PO SCH (08:00)
[2018-10-11] MEDS: LORATADINE 10 MG TAB PO SCH (08:00)
[2018-10-11] MEDS: DOCUSATE SODIUM 100 MG CAP PO SCH (08:00)
[2018-10-11] MEDS: FERROUS SULFATE 325 MG TAB PO SCH (08:00)
[2018-10-11] MEDS: PANTOPRAZOLE SOD 40 MG TABEC PO SCH (08:00)
[2018-10-11] MEDS: FLUTICASONE PROPIONATE NASAL SPRAY NS SCH (08:00)
[2018-10-11] MEDS: POLYETHYLENE GLYCOL 3350 17 GM PACK PO SCH (08:20)
--- NOTE | 2018-10-12 13:37 | Discharge Summary ---
ADMISSION DIAGNOSES: 1. Acute appendicitis. 2. Chronic obstructive pulmonary disease. 3. Hypothyroidism. 4. Gastroesophageal reflux disease. 5. Seasonal allergies. 6. Hyperlipidemia. 7. Anemia. DISCHARGE DIAGNOSES: 1. Acute appendicitis, rule out appendicitis. 2. Chronic obstructive pulmonary disease. 3. Hypothyroidism. 4. Gastroesophageal reflux disease. 5. Seasonal allergies. 6. Hyperlipidemia. 7. Anemia. 8. Rule out urinary tract infection. HISTORY: The patient has a history of hypothyroidism, GERD, seasonal allergies, COPD, hyperlipidemia, throat cancer, lung cancer, breast cancer. SURGICAL HISTORY: Cholecystectomy, partial hysterectomy, left breast lumpectomy. FAMILY HISTORY: The patient's sister had diabetes, cancer, and a stroke. The patient's mom also had a stroke. SOCIAL HISTORY: The patient admits to history of tobacco use, but denies any current use of alcohol, tobacco, or illicit drugs. HOSPITAL COURSE: A 78-year-old female complains of intermittent dull periumbilical tenderness that began last weekend. Around Thursday, the pain radiated to her right lower quadrant. Pain is worse with leaning forward. She denies nausea, vomiting, diarrhea, and fever. On admission, the patient had a CT of the abdomen that showed mildly dilated appendix with mild inflammatory change may reflect appendicitis, colonic diverticulosis without inflammatory change. UA showed leukocytes. The patient was started on IV antibiotics. Surgery was consulted, who did not think that the patient had appendicitis. The patient had intermittent rebound tenderness for a couple of days. GI was then consulted since Surgery did not think surgery was necessary. GI said they can do an EGD and colonoscopy outpatient. After a few days of IV antibiotics, the patient is feeling much better, tolerating her diet and ready to discharge home. Family and the patient understand discharge instructions and agrees to plan. Vital signs stable, the patient afebrile. Dictated by Jammie Herrera NP MD RAMEZ Schumacher/GABRIELE /[id number]
== END 2018-10-11 08:40 | disposition home or self-care (01) | DRG 394 ==
LOC: FSED 18:57 → ERHOLD 22:07 → INTOOBSV 22:07 → MED/SURG 23:35 → OBSVTOIN 10-09 16:18
PROVIDERS: ADMIT Internal Medicine; ATTEND Internal Medicine
DX: K35.80 Unspecified acute appendicitis (principal); N39.0 Urinary tract infection, site not specified; J44.9 Chronic obstructive pulmonary disease, unspecified; E03.9 Hypothyroidism, unspecified; K21.9 Gastro-esophageal reflux disease without esophagitis; E78.5 Hyperlipidemia, unspecified; D64.9 Anemia, unspecified; J30.2 Other seasonal allergic rhinitis; Z85.21 Personal history of malignant neoplasm of larynx; Z87.891 Personal history of nicotine dependence; Z85.3 Personal history of malignant neoplasm of breast
CPT/HCPCS: 36415; 74177; 80048; 80053; 80076; 81001; 81003; 82270; 82607; 82728; 82746; 83036; 83540; 83605; 83690; 83735; 83880; 84439; 84443; 84466; 84484; 85025; 87086; 93005; 96361; 99284; G0378; J7050

== ENCOUNTER → 2018-11-02 | Day surgery (SDC) | payer MEDICARE ==
[~2018-11-02] MED LIST: ADVAIR HFA 115-12 GM; ALBUTEROL0.63 MG/3 NEB; ALENDRONATE SOD35 MG PO; AMITRIPTYLINE H25 MG PO; ASCORBIC ACID500 MG PO; CALCIUM 600 +1 EAC2 PO; CENTRUM SILVER1 EAC3 PO; CETIRIZINE HCL10 MG PO; COLACE100 MG PO; CYCLOBENZAPRINE10 MG PO; FERROUS SULFAT325 M1 PO; FERROUS SULFAT325 MG PO; FLUTICASONE PRO16 GM NS; GLYCOPYRROLATE INJ 1MG/ 5 ML SYR ONE; GUAIFENESIN-CO118 ML PO; KENALOG TOP; LEVOTHYROXINE50 MCG PO; LORATADINE10 MG PO; MIDAZOLAM HCL 2 MG/2 ML VIAL ONE; MIRALAX17 GM PO; PEPCID20 MG; PROAIR HFA INH8.5 GM INH; PROPOFOL IV EMULSION 10 MG/ML 50 ML VIAL ONE; PROTONIX40 MG/ML PO; SIMVASTATIN40 MG PO; SYMBICORT 16010.2 GM INH; TYLENOL WITH C1 EACH PO; ULTRAM 50MG50 MG PO; ZOFRAN4 MG PO
--- OUTSIDE RECORDS SUMMARY | 2018-11-02 09:48 | XMS REPORT | Clinical Summary ---
Author Author [facility] Address Unknown Phone Unavailable Care Team Providers Care Financial Operations Clerk Name Role Phone System, Provider Not In [...] times daily with breakfast and dinner. Active ofbxzemi-tqfu-xlu-folic Take by 0 acid mouth. (GKPRXXNDMNIY-KMSZ-NXXBWZ LS-FOLIC ACID) 3,500-18-0.4 unit-mg-mg Chew Active b [...] Not on file Results Not on fileafter 11/01/2017 Insurance Payer Benefit Subscriber ID Type Phone Address Plan / Group MEDICAID [facility] Medicaid CARE [facility] [place] Contracted PLAN [facility] xxxxxxxxx MEDICARE MGD CARE MEDICARE HMO
[2018-11-02 14:00] VITALS: BP 129/66
[2018-11-02 14:42] LABS: % IRON SATURATION 14 % (15-50); IRON 34 ug/dL (50-170); TOTAL IRON BINDING CAPACITY 238 ug/dL (261-478); TRANSFERRIN 170 mg/dL (180-382)
--- NOTE | 2018-11-02 20:30 | Operative Report ---
DATE OF PROCEDURE: 11/02/2018 SURGEON: Lexx Goyal MD PROCEDURES: Esophagogastroduodenoscopy with biopsies and colonoscopy with polypectomy and biopsies. INDICATIONS FOR EGD: Dyspepsia. INDICATIONS FOR COLONOSCOPY: Anemia. MEDICATIONS: The patient was done under MAC, please see anesthesiologist's note. PROCEDURE IN DETAIL: With the patient in left lateral decubitus position, a flexible fiberoptic Olympus gastroscope was introduced into the esophagus under direct visualization without any difficulty. There was some patchy erythema noted in distal esophagus. The scope was then advanced with ease into the stomach. Mucosa overlying the antrum and the body revealed some diffuse erythema and ulwg-mg-gxhnpgpj edema and biopsies were obtained, sent to stain for H pylori. The pylorus was somewhat stenotic, but it opened up nicely with repetitive intubations with the scope which was advanced all the way to the second portion of the duodenum. The scope was then withdrawn slowly, mucosa overlying the proximal second portion and duodenal bulb grossly appeared to be within normal limits. The scope was then withdrawn back into the stomach and retroflexed and mucosa overlying the fundus and cardia appeared to be within normal limits. The scope was then straightened out. The stomach was decompressed and it was subsequently withdrawn. The patient tolerated the procedure well. IMPRESSION: 1. Distal esophagitis, mild. 2. Gastritis, biopsied. Biopsies sent to stain for Helicobacter pylori. PLAN: Follow up histology. Initiate Protonix 40 mg one p.o. q.a.m. a.c. PROCEDURE IN DETAIL: The patient was then turned around after adequate lubrication of the anal canal, flexible fiberoptic Olympus colonoscope was inserted into the rectum with ease and advanced all the way to the cecum. Mucosa overlying the cecum appeared to be within normal limits. Diverticular disease was noted to be scattered throughout, but more pronounced in the left colon. A polypoid lesion approximately 6 mm in size that was sessile with yellowish over hue suspicious for lipoma, was biopsied. The transverse and descending other than for diverticular disease appeared to be within normal limits. Three polyps were removed per hot biopsy forceps on the sigmoid. The rectum appeared to be within normal limits. The scope was then retroflexed into the distal rectum and small internal hemorrhoids were noted, none of which was actively bleeding. The scope was then straightened out, it was subsequently withdrawn. The patient tolerated the procedure well. IMPRESSION: 1. [place] diverticulosis. 2. Rule out lipoma, ascending colon. 3. Sigmoid colon polyps x3, hot biopsied. 4. Internal hemorrhoids, none actively bleeding. PLAN: Follow up histology. Initiate high-fiber, low-fat diet. Initiate high-fiber supplement. The patient might benefit from a followup colonoscopy in 3 to 5 years. Lexx Goyal MD [facility] [place] /[id number] cc: Dr. Najera
== END | disposition home or self-care (01) ==
LOC: OR 09:38
PROVIDERS: ATTEND Internal Medicine Gastroenterology
DX: D64.9 Anemia, unspecified (principal); K63.5 Polyp of colon; K29.70 Gastritis, unspecified, without bleeding; K20.9 Esophagitis, unspecified; K57.30 Diverticulosis of large intestine without perforation or abscess without bleeding; K21.9 Gastro-esophageal reflux disease without esophagitis; K59.09 Other constipation; K64.8 Other hemorrhoids; J45.909 Unspecified asthma, uncomplicated; G47.33 Obstructive sleep apnea (adult) (pediatric); R03.0 Elevated blood-pressure reading, without diagnosis of hypertension; Z88.6 Allergy status to analgesic agent; Z88.0 Allergy status to penicillin; Z87.891 Personal history of nicotine dependence
CPT/HCPCS: 36415; 43239; 45380; 45384; 83540; 84466; 85045; J2250; J2704; J3490; 45378

== ENCOUNTER 2020-02-05 10:01 | Emergency (ER) | payer MEDICARE, OTHER ==
[~2020-02-05] VITALS: Ht 162.6 cm; Wt 63.5 kg
[~2020-02-05 10:01] MED LIST changes: -GLYCOPYRROLATE INJ 1MG/ 5 ML SYR ONE; -MIDAZOLAM HCL 2 MG/2 ML VIAL ONE; -PROPOFOL IV EMULSION 10 MG/ML 50 ML VIAL ONE
--- OUTSIDE RECORDS SUMMARY | 2020-02-05 11:03 | XMS REPORT | Continuity of Care Document ---
Author Author [facility] t Organization [facility] Address [facility] [address] [place] [address] Phone Unavailable Care Team Providers Care Stock Pitcher Name Role Phone NONSTAFF PCP Unavailable Gurdeep BINGHAM, A Amanda Attphys Dania YANG, P Ashely Attphys [phone] Khushbu BAILEY Attphys Unavailable Lizette CENTENOENCE Attphys Unavailable ZANA NAJERA Attphys Unavailable Payers Payer Name Policy Type Policy Number Effective Date Expiration Date [place] [employer] MEDICAREUHC MEDICARE COMPLETExxxxxxxxx2019-05/31/[id number] [address] xxxxxxxxx 2019 00:00:00 2020 23:59:59 H [facility] COMMUN ITY PLAN [id number] [address] xxxxxxxxx 2011 00:00:00 Barron Sesay [facility] [id number] 2018 00:00:00 [facility] [id number] 2011 00:00 :[address] [facility] Problems Condition Name Condition Details Condition Category Status Onset Date Resolution Date Last Treatment Date Treating Clinician Comments Source Biliary colic Biliary colic Disease Active 2017-07-24 00:00:00 Overview: Added automatically from request for surgery [id number] [facility] Calculus of gallbladder without cholecystitis without obstruction Calculus of gallbladder without cholecystitis without obstruction Disease Active 2017-07-24 00:00:00 Overview: Added automaticall y from request for surgery [id number] [facility] Cervical radiculopathy Cervical radiculopathy Disease Active 2017-04-09 00:00:00 [facility] Hypoxia Hypoxia Disease Active 2014-06-26 00:00:00 [facility] Breast cancer Breast cancer Disease Active 2013-05-26 00:00:00 [facility] COPD (chronic obstructive pulmonary disease) COPD (chr onic obstructive pulmonary disease) Disease Active 2012-01-02 00:00:00 [facility] Upper respiratory infection Upper respiratory infection Disease Active 2011-09-16 00:00:00 [facility] History of lung cancer History of lung cancer Disease Active 2011-04-14 00:00:00 [facility] Anemia in chronic illness Anemia in chronic illness Disease Ac tive 2011-04-14 00:00:00 [facility] BMI 26.0-26.9,adult BMI 26.0-26.9,adult Disease Active 2011-04-14 00:00 :00 [facility] 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 Disease Active 2010-03-29 00:00:00 [facility] Lung cancer Lung cancer Disease Active 2009-09-13 00:00:00 Overview: Stage IA ([id number]) Lung adenoCA*03/08/09: CT chest: 9 mm nodule in RUL*05/07/09: RULobectomy with 1.2 cm adenoCA, negative margins (0.1 cm), +lymphatic invasion, no vascular or perineural invasion, 0/6 LN's [facility] Hyperlipidemia Hyperlipidemia Disease Active 2009-07-27 00:00:00 [facility] History of laryngeal cancer History of laryngeal cancer Disease Active 2009-02-19 00:00:00 [facility] Personal history of breast cancer Personal history of breast can cer Disease Active 2009-02-19 00:00:00 [facility] GERD (gastroesophageal reflux disease) GERD (gastroesophagea l reflux disease) Disease Active 2007-05-28 00:00:00 [facility] Anemia, hemolytic, thalassemia minor Anemia, hemolytic, thal assemia minor Disease Active 2006-07-17 00:00:00 [facility] Deafness Deafness Disease Active 2006-07-17 00:00:00 Overview: Longstanding since high school - reads [facility] Allergies, Adverse Reactions, Alerts Allergy Name Allergy Type Status Severity Reaction(s) Onset Date Inacti ve Date Treating Clinician Comments Source Penicillin Allergy to Substance Active Moderate 2017-10-19 00:00:0 0 [facility] Aspirin Allergy to Substance Active Moderate 2017-10-19 00:00:00 [facility] Salicylates Drug Intolerance Active Other (See Comments) 2013-04-04 00:00:00 bleeding [facility] Penicillins Drug Allergy Active Itching 2013-04-04 00:00:00 [facility] Aspirin Propensity to adverse reactions to drug Active 2009-05-17 00:00:00 Bleeding [facility] Penicillins Propensity to adverse reactions to drug Active 2006-07-17 00:00:00 Itch [facility] Family History Family Member Diagnosis Comments Start Date Stop Date Source Natural brother Hypertension [facility] Natural brother Pulmonary [facility] alth Natural mother Arthritis [facility] Natural mother Asthma [facility] Natural sister Diabetes [facility] Natural sister Hypertension [facility] Social History Social Habit Start Date Stop Date Quantity Comments Source Sex Assigned At [facility] Cigarettes smoked current (pack per day) - Reported 00:00:00 2020-02-03 00:00:00 [facility] Cigarette pack-years 2020-02-03 00:00:00 2020-02-03 00:00:00 [facility] Alcohol intake 2020-02-03 00:00:00 2020-02-03 00:00:00 Current non-drinker of alcohol (finding) [facility] History SDOH Food Worry 2017-05-11 00:00:00 2017-05-11 00[facility]00[facility] 2017-05-11 00:00:00 2017-05-11 00:00:00 1 [facility] History of tobacco use 2002-07-17 00:00:00 Current smoker [facility] Smoking Status Start Date Stop Date Source Former smoker 2020-02-03 00:00:00 2020-02-03 00:00:00 [facility] Medications Ordered Medication Name Filled Medication Name Start Date Stop Da te Current Medication? Ordering Clinician Indication Dosage Frequency Signature (SIG) Comments Components Source pantoprazole (PROTONIX) 40 mg delayed release tablet 2 00:00:00 Yes Gastroesophageal reflux disease, esophagitis presence not specified TAKE 1 TABLET BY MOUTH EVERY MORNING BEFORE MEALS. [facility] simvastatin (ZOCOR) 10 mg tablet 2019-09-05 00:00:00 Yes Hyperlipidemia, unspecified hyperlipidemia type TAKE 1 T ABLET BY MOUTH EVERY NIGHT AT BEDTIME FOR CHOLESTEROL. - generic ok. [facility] levothyroxine (SYNTHROID) 25 mcg tablet 2019-07-22 00:00:00 Yes Subclinical hypothyroidism 25ug QD Take 1 tablet by mouth daily. [facility] budesonide-formoterol (SYMBICORT HFA) 80-4.5 mcg/actuation i nhaler 2019-07-22 00:00:00 Yes Chronic obstructive pulmonar y disease, unspecified COPD type 2{puff} Q.5D Inhale 2 Puffs by mouth 2 times daily. [facility] albuterol 90 mcg/actuation inhaler 2019-07-22 00:00:00 Yes Chronic obstructive pulmonary disease, unspecified COPD type 2{puff} Inhale 2 Puffs by mouth 4 times daily as needed for Wheezing. [facility] alendronate (FOSAMAX) 35 mg tablet 2019-07-22 00:00:00 Yes Medicine refill TAKE 1 TABLET BY MOUTH WEEKLY TO PREVENT OSTEOP OROSIS.. [facility] pantoprazole (PROTONIX) 40 mg delayed release tablet 2019-07-22 00:00:00 2020-01-12 00:00:00 No Gastroesophageal ref lux disease, esophagitis presence not specified TAKE 1 TABLET BY MOUTH EVERY MORNING BEFORE MEALS. [facility] pantoprazole (PROTONIX) 40 mg delayed release tablet 2019-05-10 00:00:00 2019-07-22 00:00:00 No TAKE 1 TABLET BY MOUTH EVERY MORNING BEFORE MEALS [facility] levothyroxine (SYNTHROID) 25 mcg tablet 00:00:00 2019-07-22 00:00:00 No Subclinical hypothyroidism 25ug QD Brendan e 1 tablet by mouth daily. [facility] fluticasone propionate (FLONASE) 50 mcg/actuation nasal spra y 2018-12-03 00:00:00 Yes Sinus headache 1{spray} QD Use 1 [place] in each nostril daily. [facility] simvastatin (ZOCOR) 10 mg tablet 2018-12-03 00:00:00 2019-08 00:00:00 No Hyperlipidemia, unspecified hyperlipidemia type TAKE 1 TABLET BY MOUTH EVERY NIGHT AT BEDTIME FOR CHOLESTEROL. - generic ok. [facility] Ascorbic Acid 500 Mg Tablet Ascorbic Acid 500 Mg Tablet 2018-10-11 00:00:00 Yes Jammie [employer] 500 Twice A Day [facility] Docusate Sodium (Colace) 100 Mg Cap Docusate Sodium (Colace) 100 Mg Cap 2018-10-11 00:00:00 Yes Jammie [employer] 100 Twice A Day [facility] Ferrous Sulfate 325 Mg Tablet Ferrous Sulfate 325 Mg Tablet 2018 00:00:00 Yes Jammie [employer] 325 Twice Daily With Meals [facility] Ondansetron Hcl (Zofran*) 4 Mg Tablet Ondansetron Hcl (Zofra n*) 4 Mg Tablet 2018-10-11 00:00:00 Yes Jammie [employer] 4 Every 8 Hours as needed for Nausea And Vomiting [facility] Pantoprazole Sod (Protonix) 40 Mg/Ml Susp Pantoprazole Sod (Protonix) 40 Mg/Ml Susp 2018-10-11 00:00:00 Yes Jammie [employer] 40 Before Breakfast [facility] Polyethylene Glycol 3350 (Miralax) 17 Gm Powd.pack Gianfranco yethylene Glycol 3350 (Miralax) 17 Gm Powd.pack 2018-10-11 00:00:00 Yes Jammie [employer] 17 Daily [facility] Tramadol Hcl (Ultram 50MG*) 50 Mg Tab Tramadol Hcl (Ultram 5 0MG*) 50 Mg Tab 2018-10-11 00:00:00 Yes Jammie [employer] 50 Twice A Day as needed for Pain [facility] VITAMIN C & E COMBINATION OR 2018-05-21 08:40:48 Yes None Entered [facility] CALCIUM 600 + D(3) OR 2018-05-21 08:40:48 Yes None Entered [facility] CENTRUM SILVER TAB 2018-05-21 08:40:48 Yes N one Entered [facility] cyclosporine (RESTASIS) 0.05 % ophthalmic drops 2018-05-21 08:40 :48 Yes 1[drp] Q.5D 1 Drop 2 times daily. [facility] budesonide-formoterol (SYMBICORT HFA) 80-4.5 mcg/actuation i nhaler 2018-02-02 00:00:00 2019-07-22 00:00:00 No Chronic obst ructive pulmonary disease, unspecified COPD type 2{puff} Q.5D Inhale 2 Puffs by mouth 2 times leeann y. [facility] alendronate (FOSAMAX) 35 mg tablet 2018-02-02 00:00:00 00:00:00 No Medicine refill TAKE 1 TABLET BY MOUTH WEEKLY T O PREVENT OSTEOPOROSIS.. [facility] Diclofenac Sodium (VOLTAREN) 1 % Gel 2017-12-08 00:00:00 Yes Chronic left shoulder pain Apply to affected area Use twice daily a s needed for pain. [facility] albuterol 90 mcg/actuation inhaler 2017-12-08 00:00:00 00:00:00 No Chronic obstructive pulmonary disease, unspecified COPD type 2{p uff} Inhale 2 Puffs by mouth 4 times daily as needed for Wheezing. [facility] traMADol (ULTRAM) 50 mg tablet 2017-09-16 00:00:00 Yes Biliary colic 50mg Take 1 tablet by mouth every 6 hours as needed for Pain. [facility] codeine-guaiFENesin (CHERATUSSIN AC) 10-100 mg/5 mL syrup 2017-02-13 00:00:00 Yes 5mL Take 5 mL by mouth 3 times daily as needed for Cough. [facility] inhalational spacing device (AEROCHAMBER) Spcr 2017-02-07 00:00: 00 Yes Use with the inhaler. [facility] famotidine (PEPCID) 20 MG tablet 2017-02-06 21:29:02 Yes 20mg Q.5D Take 20 mg by mouth 2 (two) times daily. [facility] MULTIVIT WITH IRON-MINERALS (CENTRAVITES 50 PLUS ORAL) 2017-02-06 21:29:02 Yes Take by mouth. [facility] ferrous sulfate 325 mg (65 mg iron) tablet 2016-04-16 00:00: 00 Yes Anemia, unspecified 325mg QD Take 1 tablet by mouth daily (with breakfast) . [facility] acetaminophen-codeine (TYLENOL/CODEINE #3) 300-30 mg per tab let 2015-04-03 00:00:00 Yes Primary osteoarthritis of left shoulder 1{tbl} Take 1 tablet by mouth every 6 hours as needed for Pain. [facility] cyclobenzaprine (FLEXERIL) 10 mg tablet 2015-04-03 00:00:00 Yes Primary osteoarthritis of left shoulder 10mg Take 1 t ablet by mouth nightly at bedtime as needed (pain). [facility] CPAP Device 2014-11-02 00:00:00 Yes REGINA (obstruct uzair sleep apnea) Use device as directed. Date of Study: 08/26/14Diagnosis: REGINA 327.23REM AHI: 17 (AHI=5.6) SaO2 emily: 81%CPAP Pressure: 10 cm H2O with heated humidifier: Yes with mask (fit to patient) and supplies as needed: YesChin Strap: Yes. [facility] ferrous sulfate 325 mg (65 mg iron) tablet 2014-03-07 00:00: 00 Yes Anemia in chronic illness 325mg QD Take 1 tablet by jami th daily (with breakfast) TAKE WITH FOOD. [facility] predniSONE (DELTASONE) 20 mg tablet 2013-09-12 00:00:00 Yes COPD exacerbation Use 2 tabs daily for 5 days then use 1 tab daily for 5 days then use 1/2 tab daily for 5 days. [facility] albuterol (PROVENTIL) 2.5 mg /3 mL (0.083 %) nebulizer solut ion 2013-08-25 14:29:01 Yes 2.5mg Take 2.5 m g by nebulization every 6 (six) hours as needed. [facility] fluticasone (FLONASE) 50 mcg/actuation nasal spray 2013-07 14:29:01 Yes 1{spray} QD 1 spray by Nasal route daily. [facility] traMADol (ULTRAM) 50 mg tablet 2013-08-03 00:00:00 Yes Musculoskeletal disorder 50mg Take 1 tablet by mouth 2 times daily as needed for Pain. [facility] cetirizine (ZYRTEC) 10 mg tablet 2013-08-03 00:00:00 Yes Sinus headache 10mg QD Take 1 tablet by mouth daily. [facility] albuterol (PROVENTIL) 2.5 mg /3 mL (0.083 %) nebulizer solut ion 2013-04-18 00:00:00 Yes COPD (chronic obstructive pulmonary dise ase) 2.5mg Inhale 3 mL by mouth every 6 hours as needed for Wheezing or Shortness of Breath. [facility] loratadine (CLARITIN) 10 mg tablet 2013-04-13 00:00:00 Yes Allergic rhinitis, cause unspecified 10mg QD Take 1 tablet by mouth daily. [facility] amitriptyline (ELAVIL) 25 mg tablet 2013-04-13 00:00:00 Yes Left upper extremity numbness 25mg Take 1 tablet by mouth at bedtime. [facility] loratadine (CLARITIN) 10 mg tablet 2013-04-04 14:52:49 Yes 10mg QD Take 10 mg by mouth daily. [facility] omeprazole (PRILOSEC) 40 MG capsule 2013-04-04 14:52:49 Yes 40mg QD Take 40 mg by mouth daily. [facility] ferrous sulfate 325 (65 FE) MG tablet 2013-04-04 14:52:49 Y es 325mg Take 325 mg by mouth 3 (three) times daily with meals. [facility] calcium carbonate (OS-JERONIMO) 600 mg (1,500 mg) Tab 2013-04-04 14:52:49 Yes 600mg Take 600 mg by mouth 2 (two) times daily with breakfast and dinner. [facility] ooofgepb-eufh-oee-folic acid (MULTIVITAM SZ-LYXW-PYBHAFYJ-FOLIC ACID) 3,500-18-0.4 unit-mg-mg Chew 2013-04-04 14:52:49 Yes Take by mouth. [facility] tablet 2013-04-04 14:52:49 Yes 1{tbl} QD Take 1 tablet by mouth daily. [facility] alendronate (FOSAMAX) 35 MG tablet 2013-04-04 14:52:49 Yes 35mg Take 35 mg by mouth every 7 days. Take in the morning with a full glass of water, on an empty stomach, and do not take anything else by mouth or lie down for the next 30 min. [facility] budesonide-formoterol (SYMBICORT) 80-4.5 mcg/actuation inhal er 2013-04-04 14:52:49 Yes 2{puff} Q.5D Inhale 2 p uffs by mouth via inhaler 2 (two) times daily. [facility] simvastatin (ZOCOR) 10 MG tablet 2013-04-04 14:52:49 Yes 10mg QD Take 10 mg by mouth nightly. [facility] ascorbic acid (ASCORBIC ACID WITH ALEXYS HIPS) 500 MG tablet 2013-04-04 14:52:49 Yes 500mg QD Take 500 mg by mouth daily. [facility] cycloSPORINE (RESTASIS) 0.05 % ophthalmic emulsion 2013-04 14:52:49 Yes 1[drp] Q.5D 1 drop 2 (two) times daily. [facility] FERROUS SULFATE 325 mg (65 mg iron) delayed release tablet 2013-01-21 00:00:00 Yes Medication refill 325mg [id number] Take 1 tablet by mouth 3 times daily with meals. [facility] triamcinolone (KENALOG) 0.1 % topical cream 2012-05-03 00:00 :00 Yes Eczema Q.5D Apply to affected area 2 times daily. [facility] Acetaminophen With Codeine (Tylenol With Codeine #3 Ta blet) 1 Each Tablet Acetaminophen With Codeine (Tylenol With Codeine #3 Tablet) 1 Each Tablet Yes 300 Every 6 Hours as needed for Pain [facility] Albuterol Sulfate 0.63 Mg/3 Ml Vial.neb Albuterol Sulfate 0. 63 Mg/3 Ml Vial.neb Yes 2.5 Every 6 Hours as needed for Jacqueline rtness Of Breath [facility] Albuterol Sulfate (Proair Hfa Inhaler*) 8.5 Gm Inh Alb uterol Sulfate (Proair Hfa Inhaler*) 8.5 Gm Inh Yes Fo ur Times Daily as needed for Shortness Of Breath [facility] Alendronate Sodium 35 Mg Tablet Alendronate Sodium 35 Mg Tablet Yes 35 Weekly [facility] Amitriptyline Hcl 25 Mg Tablet Amitriptyline Hcl 25 Mg Tablet Yes 25 Bedtime [facility] Budesonide/Formoterol Fumarate (Symbicor t 160-4.5 Mcg Inhaler) 10.2 Gm Hfa.aer.ad Budesonide/Formoterol Fumarate (Symbicor t 160-4.5 Mcg Inhaler) 10.2 Gm Hfa.aer.ad Yes Twice A Day [facility] Calcium Carbonate/Vitamin D3 (Calcium 600 + D3 Softgel ) 1 Each Capsule Calcium Carbonate/Vitamin D3 (Calcium 600 + D3 Softgel) 1 Each Capsule Y es Daily [facility] Cetirizine Hcl 10 Mg Tablet Cetirizine Hcl 10 Mg Tablet Yes [address] [facility] Cyclobenzaprine Hcl 10 Mg Tablet Cyclobenzaprine Hcl 10 Mg Tablet Yes 10 Bedtime as needed for Pain [facility] Famotidine (Pepcid) 20 Mg Tablet Famotidine (Pepcid) 20 Mg Tablet Yes 20 Twice A Day [facility] Fluticasone Propionate 16 [address]m [place].susp Fluticasone Propiona te 16 Gm [place].susp Yes 50 Daily [facility] Guaifenesin/Codeine Phosphate (Guaifenesin-Codeine Syr up) 118 Ml Liquid Guaifenesin/Codeine Phosphate (Guaifenesin-Codeine Syrup) 118 Ml Liquid Yes 5 Three Times A Day as needed for Cough [facility] Kenalog Kenalog Yes .1 Twice A Day [facility] Levothyroxine Sodium 50 Mcg Tablet Levothyroxine Sodium 50 Mcg Tablet Yes 25 Daily [facility] Loratadine 10 Mg Tablet Loratadine 10 Mg Tablet Yes 10 Daily [facility] Mu-Vits-Min Th/Lycopene/Lutein (Centrum Silver Tablet) 1 Each Tablet Mu-Vits-Min Th/Lycopene/Lutein (Centrum Silver Tablet) 1 Each Tablet Yes Daily [facility] Simvastatin 40 Mg Tablet Simvastatin 40 Mg Tablet Yes 40 Today At 9:00PM [facility] Ferrous Sulfate 325 Mg Tablet., 325 Mg Oral Ferrous Sulfate 325 Mg Tablet., 325 Mg Oral 2018-10-11 00:00:00 No 325 Daily [facility] Tramadol Hcl (Ultram 50MG*) 50 Mg Tab, 50 Mg Oral Tram adol Hcl (Ultram 50MG*) 50 Mg Tab, 50 Mg Oral 2018-10-11 00:00:00 No 50 Twice A Day as needed for Pain [facility] Fluticasone/Salmeterol (Advair Hfa 115-21 Mcg Inhaler) 12 Gm Hfa.aer.ad, Fluticasone/Salmeterol (Advair Hfa 115-21 Mcg Inhaler) 12 Gm Hfa.aer.ad, 2018-10-07 00:00:00 No [facility] Immunizations Ordered Immunization Name Filled Immunization Name Date Status Comments Source Influenza, VACCINE<Fluzone, High Dose>(PF) 2019-05-24 00:0 0:00 Completed [facility] Influenza, Vaccine <FLUCELVAX>(Preservative-Free) 2018-03-26 00:00:00 Completed [facility] Influenza Vaccine, Seasonal, Injectable 2017-05-11 00:00:0 0 Completed [facility] PCV 13 (Pnuemococcal Conjugated 13 Valent) 2017-03-30 00:0 0:00 Completed [facility] Influenza Vaccine 2016-04-15 00:00:00 Completed [facility] Influenza Vaccine 2015-04-03 00:00:00 [facility] Influenza Vaccine 2014-06-26 00:00:00 Completed [facility] Herpes Zoster Vaccine In Clinic 2014-03-07 00:00:00 Comple [facility] Tdap Tetanus, diphtheria, acellular pertussis Vaccine 2013-04-13 00:00:00 Completed [facility] Influenza Vaccine 2013-04-06 00:00:00 Completed [facility] Pneumoccoccal 2012-04-13 00:00:00 Completed [facility] Influenza Vaccine 2010-03-21 00:00:00 Completed [facility] Influenza Vaccine 2008-04-05 00:00:00 Completed [facility] Influenza Vaccine 2007-04-05 00:00:00 Completed [facility] Vital Signs Vital Name Observation Time Observation Value Comments Source Systolic blood pressure 2019-09-05 15:27:00 134 mm[Hg] [facility] Diastolic blood pressure 2019-09-05 15:27:00 81 mm[Hg] [facility] Heart rate 2019-09-05 15:27:00 90 /min [facility] Body temperature 2019-09-05 15:27:00 36.28 Estephania Ana [facility] Respiratory rate 2019-07-22 11:10:00 18 /min [facility] Body height 2019-07-22 11:10:00 158 cm [facility] Body weight 2019-07-22 11:10:00 64.411 kg [facility] BMI 2019-07-22 11:10:00 25.80 kg/m2 [facility] Procedures Procedure Date / Time Performed Performing Clinician Nina pina CT ABDOMEN AND PELVIS CONTRAST 2019-08-10 15:54:44 Ashely Evans [facility] XRAY KNEE 1 OR 2 VIEWS (LIMITED-AP/LAT) 2019-07-25 15:21:07 [employer] [facility] URINALYSIS 2019-07-22 13:40:00 [facility] [facility] 2019-07-22 13:40:00 Dailyevent [employer] [facility] [employer] URINE CULTURE 2019-07-22 13:40:00 [employer] LIPID PROFILE 2019-07-22 13:22:00 [employer] COMPREHENSIVE METABOLIC PANEL 2019-07-22 13:22:00 [employer] [facility] THYROID STIMULATING HORMONE (TSH) 2019-07-22 13:22:00 [employer] [facility] CBC/DIFF 2019-07-22 13:22:00 [employer] CBC 2019-07-22 13:22:00 [employer] Encounters Start Date/Time End Date[facility] ID Source 2018-10-09 16:18:00 2018-10-11 08:40:00 Discharged Inpatient [address] [facility] [id number] [facility] 2018-09-14 17:31:00 2018-09-14 18:56:00 Departed Emergency Room [address] [facility] [id number] [facility] 2018-05-21 08:28:22 2018-05-21 08:28:22 Outpatient [facility] [id number] [facility] 2018-05-14 09:45:29 2018-05-14 09:45:29 Outpatient [facility] [id number] [facility] 2018-04-05 00:00:00 2018-04-05 00:00:00 Outpatient [facility] [id number] [facility] 2018-03-26 14:57:32 2018-03-26 14:57:32 Outpatient [facility] [id number] [facility] 2018-02-26 13:11:15 2018-02-26 13:11:15 Outpatient [facility] [id number] [facility] 2018-02-10 08:41:36 2018-02-10 08:41:36 Outpatient [facility] [id number] [facility] 2018-02-02 09:12:24 2018-02-02 09:12:24 Outpatient [facility] [id number] [facility] 2018-02-02 09:08:47 2018-02-02 09:08:47 Outpatient [facility] [id number] [facility] 2018-02-02 09:04:50 2018-02-02 09:04:50 Outpatient [facility] [id number] [facility] 2018-02-02 07:49:13 2018-02-02 07:49:13 Outpatient [facility] [id number] [facility] 2018-01-25 00:00:00 2018-01-25 00:00:00 Outpatient [facility] [id number] [facility] 2018-01-22 08:37:08 2018-01-22 08:37:08 Outpatient [facility] [id number] [facility] 2017-12-08 12:13:09 2017-12-08 12:13:09 Outpatient [facility] [id number] [facility] 2017-12-08 00:00:00 2017-12-08 00:00:00 Outpatient [facility] [id number] [facility] 2017-10-19 16:51:00 2017-10-19 20:24:00 Departed Emergency Room [facility] [id number] [facility] 2017-09-25 13:55:19 2017-09-25 13:55:19 Outpatient [facility] [id number] [facility] 2017-09-15 09:00:00 2017-09-15 09:00:00 Outpatient [facility] [id number] [facility] 2017-09-15 00:00:00 2017-09-15 00:00:00 Outpatient [facility] [id number] [facility] 2017-09-03 14:54:45 2017-09-03 14:54:45 Outpatient [facility] [id number] [facility] 2017-09-03 14:01:28 2017-09-03 14:01:28 Outpatient [facility] [id number] [facility] 2017-09-03 10:56:05 2017-09-03 10:56:05 Outpatient [facility] [id number] [facility] 2017-09-03 09:29:06 2017-09-03 09:29:06 Outpatient [facility] [id number] [facility] 2017-09-03 00:00:00 2017-09-03 00:00:00 Outpatient [facility] [id number] [facility] Results Test Description Test Time Test Comments Results Result Comments Source CT ABDOMEN AND PELVIS CONTRAST 2019-08-11 18:25:33 IMPRESSION: 1. No acute intra-abdominal abnormalities to explain patient's reportedpain.2. 1.3 cm mildly complex right renal cyst since 2010, however, thislesion previously measured simple fluid. This may represent newproteinaceous or hemorrhagic component. Recommend short-term follow-uprenal ultrasound in 6 months to document ability.3. Diverticulosis without evidence of diverticulitis.4. Mild cardiomegaly. Dictated By: Richard Cowart DO, PGY2, 08/10/2019 5:50 PM I have reviewed the study and agree with the findings in this report. Signed By: Giuliano Duffy MD, 08/11/2019 6:25 PM Interface, Rad/Mammog In - 08/11/2019 6:30 PM CDTEXAM: CT Abdomen and Pelvis WITH contrast INDICATION: Abd pain, acute, generalized COMPARISON: Abdominal CT 07/08/2010, abdominal ultrasound 04/29/2017TECHNIQUE: Abdomen and pelvis were scanned utilizing a multidetectorhelical scanner from the lung base to the pubic symphysis afteradministration of IV contrast. Coronal and sagittal reformations wereobtained. Routine protocol was performed. Scan was performed when duringportal venous phase. IV CONTRAST: 150 mL of Omnipaque 300 ORAL CONTRAST: Gastrografin COMPLICATIONS: NoneRADIATION DOSE: Total DLP: 406.3 mGy*cm Estimated effective dose: (DLP x 0.015 x size factor) mSv CTDIvol has been reviewed. It is below the limits set by theRadiation Protocol Committee (RPC).FINDINGS:LINES and TUBES: None.LOWER THORAX: Bilateral dependent atelectasis/scarring. Mildly enlargedcardiac silhouette.HEPATOBILIARY: No focal hepatic lesions. No biliary ductal dilation. GALLBLADDER: There are cholecystectomy clips.SPLEEN: No splenomegaly. PANCREAS: No focal masses or ductal dilatation. ADRENALS: No adrenal nodules KIDNEYS/URETERS: Kidneys enhance symmetrically. No hydronephrosis. 1.3x 1.3 x 1.2 cm right interpolar hypodense lesion with 30 Hounsfieldunits internal density (series 2 image 35) corresponds to the previouslyvisualized 1.3 cm mildly complex cyst with mural calcifications onabdominal ultrasound from 04/29/2017. This lesion is stable in sizesince CT dated 07/16/2010, however, previously measured simple fluid Nostones.GI TRACT: No abnormal distention, wall thickening, or evidence of bowelobstruction. There are diverticula within the colon without evidence ofdiverticulitis. Appendix is normal.PELVIC ORGANS/BLADDER: There are postop changes of hysterectomy andbilateral oophor ectomies. Bladder is unremarkable.LYMPH NODES: No lymphadenopathy.VESSELS: There is moderate atherosclerotic disease in the aorta andmajor arterial branches.PERITONEUM / RETROPERITONEUM: No free air or fluid.BONES: Unremarkable.SOFT TISSUES: Unremarkable. IMPRESSIONIMPRESSION: 1. No acute intra-abdominal abnormalities to explain patient's reportedpain.2. 1.3 cm mildly complex right renal cyst since 2010, however, thislesion previously measured simple fluid. This may represent newproteinaceous or hemorrhagic component. Recommend short-term follow-uprenal ultrasound in 6 months to kassidy britt.3. Diverticulosis without evidence of diverticulitis.4. Mild cardiomegaly.Dictated By: Richard Cowart DO, PGY2, 08/10/2019 5:50 PMI have reviewed the study and agree with the findings in this report.Signed By: Giuliano Duffy MD, 08/11/2019 6:25 PM [facility] XRAY KNEE 1 OR 2 VIEWS (LIMITED-AP/LAT) 2019-07-26 09:41:49 IMPRESSION: 1. No acute osseous lesion.2. Grade 2, mild osteoarthrosis of the right knee.3. Small to moderate right knee effusion. If the report is "FINALIZED" it indicates that the attending/staffradiologist has reviewed the images and agrees with the resident'sinterpretation. Dictated By: Glenna Escobar MD, 07/25/2019 4:50 PM I have reviewed the study and agree with the findings in this report. Signed By: Fani Mendoza MD, 07/26/2019 9:41 AM Interface, Rad/Mammog In - 07/26/2019 9:47 AM CSTEXAMINATION: XRAY KNEE 1 OR 2 VIEWS (LIMITED-AP/LAT) SIDE: RIGHTINDICATION: knee pain COMPARISON: None. FINDINGS:BONE: No acute displaced fracture.JOINTS: Mild medial compartment joint space narrowing.Minimal tricompartmental osteophytosis.SOFT TISSUES:Small to moderate right knee joint effusion.IMPRESSIONIMPRESSION: 1. No acute osseous lesion.2. Grade 2, mild osteoarthrosis of the right knee.3. Small to moderate right knee effusion.If the report is "FINALIZED" it indicates that the attending/staffradiologist has reviewed the images and agrees with the resident'sinterpretation.Dictated By: Glenna Escobar MD, 07/25/2019 4:50 PMI have reviewed the study and agree with the findings in this report.Signed By: Fani Mendoza MD, 07/26/2019 9:41 AM [facility] Urine Culture 2019-07-25 10:22:00 Test Item Urine Culture (test code = 630-4) Urogenital cinthya [facility] HospitalNnuvbfLAM9236-40-77 08:31:00* Test Item Value Reference Range Interpretation Comments TSH (test code = 64900707) 2.00 0.45- 5.33 uIU/mL If , please see the following reference ranges (not verified by lab): 1st Trimester: 0.05 -3.70 uIU/mL2nd Trimester: 0.31 -4.35 uIU/mL3rd Trimester: 0.41 - 5.18 uIU/mL Lab Interpretation (test code = 74070-7) Normal [facility]CBC/Irky4886-23-71 08:18:00* Test Item Value Reference Range Interpretation Comments WBC (test code = 6690-2) 6.7 K/uL 4.5-11 RBC (test code = 789-8) 5.09 4.20- 5.40 M/uL Hemoglobin (test code = 718-7) 10.4 g/dL 12-16 L Hematocrit (test code = 4544-3) 35.4 % 37-47 L MCV (test code = 787-2) 69.5 fL 82-92 L MCH (test code = 785-6) 20.4 pg 27-32 L MCHC (test code = 786-4) 29.4 g/dL 32-36 L RDW (test code = 79550-0) 41.6 fL 36.4-46.3 Platelet (test code = 777-3) 361 K/uL 150-400 Mean Platelet Volume (test code = 22586-2) 12.0 fL 9.4-12.4 Percent NRBC (test code = 00491305) 0.0 % Neutrophil (test code = 770-8) 52.7 % 34-70 Lymphs (test code = 736-9) 36.2 % 20-50 Monocytes (test code = 5905-5) 7.6 % 5-12 Eos (test code = 713-8) 2.8 % 0.7-5 Basos (test code = 706-2) 0.4 % 0.1-1.2 Immature Granulocytes (test code = 45579571) 0.3 % 0-0.5 Neutrophils (Absolute) (test code = 25056398) 3.55 K/uL 1.56-6.1 3 Lymphs (Absolute) (test code = 21500670) 2.44 K/uL 1.18-3.74 Monocytes(Absolute) (test code = 74130233) 0.51 K/uL 0.24-0.36 H Eos (Absolute) (test code = 45356103) 0.19 K/uL 0.04-0.36 Baso (Absolute) (test code = 43354130) 0.03 K/uL 0.01-0.08 Immature Grans (Abs) (test code = 22029480) 0.02 K/uL 0-0.03 Absolute NRBC (test code = 85614452) 0.00 K/uL Lab Interpretation (test code = 50725-8) Abnormal [facility] HospitalLipid Zilimdx2669-29-12 08:00:00* Test Item Value Reference Range Interpretation Comments Cholesterol (test code = 2093-3) 179.0 mg/dL <=200.0 Triglyceride (test code = 05195595) 130 mg/dL <150 HDL (test code = 2085-9) 58.0 mg/dL See Reference Range Narrative . LDL (test code = 33210-5) 95 mg/dL <100 Op timal: < 100.0 mg/dLNear Optimal: 120-129 mg/dLBorderline: 130-159 mg/dLHigh: 160-189 mg/dLVery High: >=190 mg/dL Patient Fasting? (test code = 59874088) Yes [facility]Com[facility] Metabolic Ocfto3904-62-05 07:59:00* Test Item Value Reference Range Interpretation Comments Sodium (test code = 2951-2) 144 mmol/L 136-145 Potassium (test code = 2823-3) 4.7 mmol/L 3.5-5.1 Chloride (test code = 2075-0) 105 mmol/L 98-107 CO2 (test code = 84216527) 30 mmol/L 21-31 Glucose (test code = 50659230) 92 mg/dL 70-110 Calcium (test code = 61942168) 9.6 mg/dL 8.6-10.3 Urea Nitrogen (test code = 77668366) 9.0 mg/dL 7-25 Creatinine (test code = 87719542) 0.8 mg/dL 0.6-1.2 Alkaline Phosphatase (test code = 31338346) 76 U/L 34-104 ALT (test code = 29089923) 12 U/L 7-52 AST (test code = 08218322) 16 U/L 13-39 Total Protein (test code = 2885-2) 7.3 g/dL 6-8.3 eGFR If Africn Am (test code = 51726898) 84 >=90 mL/min/1 .73 m2 L Albumin (test code = 05617-7) 4.6 g/dL 3.7-5.3 Anion Gap (test code = 10717109) 9 mmol/L 5-16 Lab Interpretation (test code = 20847-6) Abnormal [facility] HospitalIrwdqeHeljvrtqxt9537-58-90 21:58:00* Test Item Value Reference Range Interpretation Comments Color (test code = 41051212) Anjali Colorless, Straw, Yellow A Clarity (test code = 16784077) Cloudy Clear A Spec [place], Ur (test code = 47274513) 1.021 1.001-1.035 pH, Ur (test code = 50105450) 5.0 5.0-8.0 Protein, Ur (test code = 64602456) Negative Negative mg/dL Glucose, Ur (test code = 14791445) Negative Negative mg/dL Ketone, Ur (test code = 57401232) Negative Negative mg/dL Bilirubin, Ur (test code = 74523394) Negative Negative mg/dL Nitrite, Ur (test code = 29134603) Negative Negative Leukocyte (test code = 23466586) trace Negative mg/dL A Blood, Ur (test code = 28665946) Negative Negative mg/dL RBC (test code = 69219730) 4 0- 4 /HPF WBC (test code = 04665349) 1 0- 5 /HPF Epithelial Cell (test code = 17760760) 7 <=1 /HPF H Mucous (test code = 60922085) Present None seen /HPF A Hyaline Cast (test code = 66358019) 1 0- 2 /LPF Urobilinogen, Ur (test code = 71137188) <1.0 <1.0 EU/dL Lab Interpretation (test code = 19349-0) Abnormal [facility] HospitalB-Type Natriuretic Uinwsul5409-86-68 04:09:00* Test Item Value Reference Range Interpretation Comments B-Type Natriuretic Peptide (test code = 37877-7) 16.0 0-100 [facility] Oiwpg4053-56-97 04:02:00* Test Item Value Reference Range Interpretation Comments Sodium Level (test code = 2951-2) 141 136-145 [facility] CenterPotassium Vwmrk9976-79-97 04:02:00* Test Item Value Reference Range Interpretation Comments Potassium Level (test code = 2823-3) 3.6 3.5-5.1 [facility] CenterChloride Kcegq5177-37-98 04:02:00* Test Item Value Reference Range Interpretation Comments Chloride Level (test code = 2075-0) 109 98-107 H [facility] CenterCarbon Dioxide Vipdt0949-53-79 04:02:00* Test Item Value Reference Range Interpretation Comments Carbon Dioxide Level (test code = 2028-9) 26 22-29 [facility] CenterAnion Olh9600-82-94 04:02:00* Test Item Value Reference Range Interpretation Comments Anion Gap (test code = 04286-8) 9.6 8-16 [facility] CenterBlood Urea Xbmqyrlj7894-75-14 04:02:00* Test Item Value Reference Range Interpretation Comments Blood Urea Nitrogen (test code = 3094-0) 7 7-26 [facility] CenterCreatinine2019-05-13 04:02:00* Test Item Value Reference Range Interpretation Comments Creatinine (test code = 2160-0) 0.73 0.57-1.11 [facility] CenterBUN/Creatinine Dnzzm7263-38-73 04:02:00* Test Item Value Reference Range Interpretation Comments BUN/Creatinine Ratio (test code = 3097-3) 10 6-25 [facility] CenterEstimat Glomerular Filtration Rate 2018-10-11 04:02:00* Test Item Value Reference Range Interpretation Comments Estimat Glomerular Filtration Rate (test code = 312324698) > 60 >60 Ranges were taken from the National Kidney Disease Education Program and the [facility] [employer] literature.Reference ranges:60 or greater: Rsiuoa35-12 ( for 3 consecutive months): Chronic kidney disease 15 or less: Kidney failureHCA [facility] Healthcare Medical CenterGlucose Boodc5342-92-58 04:02:00* Test Item Value Reference Range Interpretation Comments Glucose Level (test code = CRG4693) 94 74-118 [facility] CenterCalcium Nsweh4029-38-17 04:02:00* Test Item Value Reference Range Interpretation Comments Calcium Level (test code = 73571-4) 8.8 8.4-10.2 [facility] CenterMagnesium Pdamz5281-26-00 04:02:00* Test Item Value Reference Range Interpretation Comments Magnesium Level (test code = 50544-0) 1.8 1.3-2.1 [facility] CenterWhite Blood Ydcwm4955-95-98 03:41:00* Test Item Value Reference Range Interpretation Comments White Blood Count (test code = 6690-2) 5.87 4.8-10.8 [facility] CenterRed Blood Ezvxc0172-65-54 03:41:00* Test Item Value Reference Range Interpretation Comments Red Blood Count (test code = 789-8) 4.41 3.6-5.1 [facility] CenterHemoglobin2019-05-13 03:41:00* Test Item Value Reference Range Interpretation Comments Hemoglobin (test code = 65041-6) 9.0 12.0-16.0 L [facility] CenterHematocrit2019-05-13 03:41:00* Test Item Value Reference Range Interpretation Comments Hematocrit (test code = 4544-3) 28.5 34.2-44.1 L [facility] CenterMean Corpuscular Fnaius3426-03-57 03:41:00* Test Item Value Reference Range Interpretation Comments Mean Corpuscular Volume (test code = 787-2) 64.6 81-99 L [facility] CenterMean Corpuscular Adbezakirp3205-41-49 03:41:00* Test Item Value Reference Range Interpretation Comments Mean Corpuscular Hemoglobin (test code = 785-6) 20.4 28-32 L [facility] CenterMean Corpuscular Hemoglobin Concent 2018-10-11 03:41:00* Test Item Value Reference Range Interpretation Comments Mean Corpuscular Hemoglobin Concent (test code = 786-4) 31.6 31-35 [facility] CenterRed Cell Distribution Bcyzq3115-34-21 03:41:00* Test Item Value Reference Range Interpretation Comments Red Cell Distribution Width (test code = 91808-8) 16.4 11.7 -14.4 H [facility] CenterPlatelet Itdcy6176-40-01 03:41:00* Test Item Value Reference Range Interpretation Comments Platelet Count (test code = 777-3) 244 140-360 [facility] CenterNeutrophils (%) (Auto)2018-10-11 03:41:00 * Test Item Value Reference Range Interpretation Comments Neutrophils (%) (Auto) (test code = 14111-2) 57.9 38.7-80.0 [facility] CenterLymphocytes (%) (Auto)2018-10-11 03:41:00 * Test Item Value Reference Range Interpretation Comments Lymphocytes (%) (Auto) (test code = 736-9) 26.7 18.0-39.1 [facility] CenterMonocytes (%) (Auto)2018-10-11 03:41:00* Test Item Value Reference Range Interpretation Comments Monocytes (%) (Auto) (test code = 5905-5) 8.7 4.4-11.3 [facility] CenterEosinophils (%) (Auto)2018-10-11 03:41:00 * Test Item Value Reference Range Interpretation Comments Eosinophils (%) (Auto) (test code = 713-8) 5.8 0.0-6.0 [facility] CenterBasophils (%) (Auto)2018-10-11 03:41:00* Test Item Value Reference Range Interpretation Comments Basophils (%) (Auto) (test code = 706-2) 0.7 0.0-1.0 [facility] CenterIM GRANULOCYTES %2018-10-11 03:41:00* Test Item Value Reference Range Interpretation Comments IM GRANULOCYTES % (test code = IM GRANULOCYTES %) 0.2 0.0- 1.0 [facility] CenterNeutrophils # (Auto)2018-10-11 03:41:00* Test Item Value Reference Range Interpretation Comments Neutrophils # (Auto) (test code = 751-8) 3.4 2.1-6.9 [facility] CenterLymphocytes # (Auto)2018-10-11 03:41:00* Test Item Value Reference Range Interpretation Comments Lymphocytes # (Auto) (test code = 04113-8) 1.6 1.0-3.2 [facility] CenterMonocytes # (Auto)2018-10-11 03:41:00* Test Item Value Reference Range Interpretation Comments Monocytes # (Auto) (test code = 742-7) 0.5 0.2-0.8 [facility] CenterEosinophils # (Auto)2018-10-11 03:41:00* Test Item Value Reference Range Interpretation Comments Eosinophils # (Auto) (test code = 711-2) 0.3 0.0-0.4 [facility] CenterBasophils # (Auto)2018-10-11 03:41:00* Test Item Value Reference Range Interpretation Comments Basophils # (Auto) (test code = 704-7) 0.0 0.0-0.1 [facility] CenterAbsolute Immature Granulocyte (auto 2018-10-11 03:41:00* Test Item Value Reference Range Interpretation Comments Absolute Immature Granulocyte (auto (diya t code = Absolute Immature Granulocyte (auto) 0.01 0-0.1 [facility] CenterTotal Zcljdwdtl1233-14-06 03:38:00* Test Item Value Reference Range Interpretation Comments Total Bilirubin (test code = 1975-2) 0.8 0.2-1.2 [facility] CenterDirect Teumhsrvk2313-74-18 03:38:00* Test Item Value Reference Range Interpretation Comments Direct Bilirubin (test code = 63982-8) 0.5 0.0-0.5 [facility] CenterAspartate Amino Transf (AST/SGOT) 2018-10-10 03:38:00* Test Item Value Reference Range Interpretation Comments Aspartate Amino Transf (AST/SGOT) (test code = Aspartate Amino Transf (AST/SGOT)) 24 5-34 [facility] CenterAlanine Aminotransferase (ALT/SGPT) 2018-10-10 03:38:00* Test Item Value Reference Range Interpretation Comments Alanine Aminotransferase (ALT/SGPT) (test code = 1742-6) 14 0-55 [facility] CenterTotal Sikyzhs0749-74-73 03:38:00* Test Item Value Reference Range Interpretation Comments Total Protein (test code = 2885-2) 6.2 6.5-8.1 L [facility] CenterAlbumin2019-05-12 03:38:00* Test Item Value Reference Range Interpretation Comments Albumin (test code = 1751-7) 3.5 3.5-5.0 [facility] CenterAlkaline Sfsqomlzlfr7141-97-09 03:38:00* Test Item Value Reference Range Interpretation Comments Alkaline Phosphatase (test code = 6768-6) 65 40-150 [facility] CenterLipase2019-05-12 03:38:00* Test Item Value Reference Range Interpretation Comments Lipase (test code = 3040-3) 12 8-78 [facility]view[facility] Occult Qjnpi8714-99-85 10:32:00* Test Item Value Reference Range Interpretation Comments Stool Occult Blood (test code = 2335-8) NEGATIVE NEGATIVE [facility] CenterHemoglobin A1c Rqapmag2164-69-04 09:45:00 * Test Item Value Reference Range Interpretation Comments Hemoglobin A1c Percent (test code = Hemoglobin A1c Percent) 5.5 4.0-7.0 [facility] CenterVitamin B12 Sawxm8421-18-43 04:45:00* Test Item Value Reference Range Interpretation Comments Vitamin B12 Level (test code = 43221-3) 371 213-816 [facility] CenterFolate2019-05-10 04:45:00* Test Item Value Reference Range Interpretation Comments Folate (test code = 2284-8) 17.1 7.0-15.4 H [facility] CenterIron Vcxfj1676-39-19 04:34:00* Test Item Value Reference Range Interpretation Comments Iron Level (test code = 2498-4) 39 50-170 L [facility] CenterTotal Iron Binding Sewixbzr1154-00-24 04:34:00* Test Item Value Reference Range Interpretation Comments Total Iron Binding Capacity (test code = 2500-7) 239 261-4 78 L [facility] CenterPercent Iron Rwiscoybhk0364-82-67 04:34:00* Test Item Value Reference Range Interpretation Comments Percent Iron Saturation (test code = 2502-3) 16 15-50 [facility] CenterTransferrin2019-05-10 04:34:00* Test Item Value Reference Range Interpretation Comments Transferrin (test code = 3034-6) 171 180-382 L [facility] CenterFerritin2019-05-10 04:34:00* Test Item Value Reference Range Interpretation Comments Ferritin (test code = 2276-4) 422.71 4.63-204.00 H [facility] CenterFree Viyucinfv0378-28-97 04:34:00* Test Item Value Reference Range Interpretation Comments Free Thyroxine (test code = 3024-7) 0.86 0.9-1.8 L [facility] CenterThyroid Stimulating Hormone (TSH) 2018-10-08 04:34:00* Test Item Value Reference Range Interpretation Comments Thyroid Stimulating Hormone (TSH) (test code = 91421-9) 1.687 0.350-4.940 [facility] CenterUrine SMU7156-67-24 10:38:00* Test Item Value Reference Range Interpretation Comments Urine WBC (test code = 5821-4) 0-5 0-5 [facility] CenterUrine WMF4845-11-61 10:38:00* Test Item Value Reference Range Interpretation Comments Urine RBC (test code = 78430-2) NONE 0-5 [facility] CenterUrine Azylugdy0971-13-65 10:38:00* Test Item Value Reference Range Interpretation Comments Urine Bacteria (test code = 76201-0) RARE NONE [facility] CenterUrine Epithelial Mvvnf0419-52-42 10:38:00 * Test Item Value Reference Range Interpretation Comments Urine Epithelial Cells (test code = 63833-0) RARE NONE [facility] CenterUrine Fylzm7617-67-71 08:33:00* Test Item Value Reference Range Interpretation Comments Urine Color (test code = 5778-6) YELLOW YELLOW [facility] CenterUrine Fndjywy2558-81-73 08:33:00* Test Item Value Reference Range Interpretation Comments Urine Clarity (test code = 55665-2) CLEAR CLEAR [facility] CenterUrine Specific Ookhbnh6841-63-41 08:33:00 * Test Item Value Reference Range Interpretation Comments Urine Specific [place] (test code = 5811-5) 1.010 1.010-1.02 5 [facility] CenterUrine sO4346-21-40 08:33:00* Test Item Value Reference Range Interpretation Comments Urine pH (test code = 81924-4) 6 5-7 [facility] CenterUrine Leukocyte Tbnmbcic2584-01-90 08:33:00* Test Item Value Reference Range Interpretation Comments Urine Leukocyte Esterase (test code = 5799-2) TRACE NEGATIVE H [facility] CenterUrine Yebhfbk9688-62-36 08:33:00* Test Item Value Reference Range Interpretation Comments Urine Nitrite (test code = 32995-3) NEGATIVE NEGATIVE [facility] CenterUrine Rrmzytc6723-08-06 08:33:00* Test Item Value Reference Range Interpretation Comments Urine Protein (test code = 5804-0) NEGATIVE NEGATIVE [facility] CenterUrine Glucose (UA)2018-10-07 08:33:00* Test Item Value Reference Range Interpretation Comments Urine Glucose (UA) (test code = 2349-9) NEGATIVE NEGATIVE [facility] CenterUrine Pstaxkr3935-97-22 08:33:00* Test Item Value Reference Range Interpretation Comments Urine Ketones (test code = 51061-1) NEGATIVE NEGATIVE [facility] CenterUrine Tueybjymwaid8791-48-13 08:33:00* Test Item Value Reference Range Interpretation Comments Urine Urobilinogen (test code = 36666-3) 0.2 0.2-1 [facility] CenterUrine Xccnrrudk6060-47-39 08:33:00* Test Item Value Reference Range Interpretation Comments Urine Bilirubin (test code = 1978-6) NEGATIVE NEGATIVE [facility] CenterUrine Qefua5182-04-87 08:33:00* Test Item Value Reference Range Interpretation Comments Urine Blood (test code = 88455-5) NEGATIVE NEGATIVE [facility] CenterGlobulin2019-05-09 07:27:00* Test Item Value Reference Range Interpretation Comments Globulin (test code = 44807-7) 2.8 2.3-3.5 [facility] CenterAlbumin/Globulin Jsntw7165-82-46 07:27:00 * Test Item Value Reference Range Interpretation Comments Albumin/Globulin Ratio (test code = 1759-0) 1.3 0.8-2.0 [facility] CenterCT ABD/PEL WITH [id number] 21:29:00 [facility] [address] [address] Patient Name: JOSH ROCK MR #: [id number] : 1940 Age/Sex: 78/F Req #: [id number] Adm Physician: Ordered by: SIMEON BAILEY MD Report #: [id number] Location: [facility] Room/Bed: Procedure: [id number] HOPD/ CT ABD/PEL WITH CONTRAST-HOPD Exam Date: 10/06/18 Ex am Time: 2039 REPORT STATUS: Signed EXAMINATION: CT of the abdomen and pelvis with contrast. TECHNIQUE: Helical CT images of the abdomen and pelvis were performed from the lung bases to the lesser trochanters after the intravenous administration of 100 cc of I sovue 300 and the oral administration of none. Coronal and sagittal reformatt ed images were obtained.Dose modulation, iterative reconstruction, and/or weig ht based adjustment of the mA/kV was utilized to reduce the radiation dose to as low as reasonably achievable. COMPARISON: None. CLINICAL HISTORY: Lower abdominal pain DISCUSSION: ABDOMEN/PELVIS: LOWER THORA X:Unremarkable. HEPATOBILIARY: No focal hepatic lesions. No intra-or extra hepatic biliary ductal dilation. Cholecystectomy. SPLEEN: No splenomega ly. PANCREAS: No focal masses or ductal dilatation. ADRENALS: No adre nal nodules. KIDNEYS/URETERS: No hydronephrosis or solid mass lesions. 1.2 cm cyst in the right kidney. PELVIC ORGANS/BLADDER: Bladder is normal. Hy sterectomy. PERITONEUM/RETROPERITONEUM: No free air or fluid. LYMPH NO MILDRED: No intra-abdominal, retroperitoneal, pelvic or inguinal lymphadenopathy. VESSELS: Vascular calcifications. GI TRACT: No obstruction. Diverticul osis without inflammatory change. The distal appendix measures 1 cm near in di mension with mild inflammatory change on axial image 49 and 50 BONES AND SOFT TISSUE: No bony destructive lesions. No soft tissue abnormalities. IMPRESSION: Mildly dilated appendix with mild inflammatory change may reflect appendicitis. Colonic diverticulosis without inflammatory change. Signed by: Dr. Angie Adan M.D. on 10/06/2018 9:35 PM Dictated By: ANGIE ADAN MD 2 135 Transcribed By: JARROD on 10/06/18 1773 COPY TO: SIMEON BAILEY MD Lactic Acid Aqwmb1960-10-24 21:17:00* Test Item Value Reference Range Interpretation Comments Lactic Acid Level (test code = Lactic Acid Level) 7.6 4.5- 19.8 [facility] [id number] 18:16:00 [facility] [address] [place] [address] Patient Name: JOSH ROCK MR #: [id number] : 1940 Age/Sex: 78/F Req #: [id number] Adm Physician: Ordered by: COLUMBA CENTENO MD Report #: [id number] Location: [facility] Room/Bed: Procedure: [id number] HOPD/ CXR 2 VIEW - HOPD Exam Date: 09/14/18 Exam Time: 180 0 REPORT STATUS: Signed EXAMINAT ION: CXR 2 VIEW - HOPD INDICATION: Cough. Congestion. 1799 COMPARISON: None FINDINGS: TUBES and LINES: None. LUNGS: Surgical clips in the right hilar region with volume loss in the r ight chest. There is no evidence of pneumonia or pulmonary edema. P LEURA: No pleural effusion or pneumothorax. HEART AND MEDIASTINUM: The ca rdiomediastinal silhouette is unremarkable. BONES AND SOFT TISSUES: No acute osseous lesion. Soft tissues are unremarkable. UPPER ABDOMEN: No free air under the diaphragm. IMPRESSION: Surgical clips in the righ t hilar region with volume loss in the right chest Signed by: Dr. Fani Mendoza M.D. on 09/14/2018 6:18 PM Dictated By: FANI MENDOZA MD, MD Electr onically Signed By: FANI MENDOZA MD, MD on 09/14/181817 Transcribed By: MONTEZ Gibson on 09/14/181817 COPY TO: COLUMBA CENTENO MD CT, CHEST WITH IV CONTRAST- PE TEST [id number] 00:28:00Reason for exam:->COUGHsince last nightReason for exam:->CHEST PAINWhat is the patient's sedation requirement?->No SedationFINAL REPORT EXAMINATION: CHEST CT / PE PROTOCOL [...] is mild nonspecific elevation of the right hemidiaphragm. The trachea is mildly dilated and ectatic. Senescent changes of aging are also noted involving the trachea and central airways. There is narrowing of the right mainstem bronchus, etiology indeterminant but likely chr onic in nature. No evidence of a discrete endobronchial lesion or significant de bris. No evidence of a discrete filling defect/embolus within the pulmonary jose ilda. Mild dilatation of the central pulmonary arteries is nonspecific but can b e associated with pulmonary hypertension. The thoracic aorta is mildly ectatic b ut normal in caliber. No evidence of an aortic dissection. The heart is mild to moderately enlarged. No evidence of a pericardial effusion. The esophagus is de compressed. Small calcifications or surgical clips are noted in the mediastinum as well as the dependent portion of the right pleural space. No evidence of path ologically enlarged mediastinal or axillary lymph nodes. Limited images of the u pper abdomen demonstrate multiple gallstones within the incompletely visualized gallbladder. No definite evidence of an acute osseous abnormality. IMPRESSION: Emphysema. Thin curvilinear parenchymal lung opacities, nonspecific but morpholo gically suggestive of scarring and/or atelectasis. No evidence of a discrete pne umonia. Cardiac enlargement. Mild dilatation of the central pulmonary arteries, possible pulmonary arterial hypertension. No evidence of a PE. Cholelithiasis. S igned: Luc Grace MDReport Verified Date/Time: 02/07/2017 00:28:47 Reading Lo cation: [facility] [address] Transitional Reading Room [id number] 22:42:00* Test Item Value Reference Range Interpretation Comments D-DIMER QUANTITATIVE (BEAKER) (test code = 671) 0.83 MG/L FEU <0.50 H REGARDING D-DIMER RESULTS: Results of this D-Dimer test should always be interpr eted in conjunction with the patient's medical history, clinical presentation an d other findings. DVT clinical diagnosis should not be based on the results of Filiberto SOTELO D-Dimer alone.B-TYPE NATRIURETIC FACTOR (BNP)2017-02-06 22:09:00* Test Item Value Reference Range Interpretation Comments B-TYPE NATRIURETIC PEPTIDE (BEAKER) (test code = 700) 19 pg/mL 0-100 RAD, CHEST, 2 [id number] 22:08:00Reason for exam:->COUGHsince last nightReason for exam:->CHEST [...] previous examinations dating back to 2009. Signed: Robb Jacob MDReport Verified Date/Time: 02/06/2017 22:08: 06 Reading Location: [address] Reading Room Electronically si gned by: ROBB JACOB M.D. on 02/06/2017 10:08 PM RAPID [id number] 22:05:00* Test Item Value Reference Range Interpretation Comments RAPID CKMB (BEAKER) (test code = 1482) 1.3 ng/mL 0.0-4.3 RAPID TROPONIN [id number] 22:05:00* Test Item Value Reference Range Interpretation Comments RAPID TROPONIN I (BEAKER) (test code = 1483) < ng/mL <0.05 BASIC METABOLIC [id number] 22:03:00* Test Item Value Reference Range Interpretation Comments SODIUM (BEAKER) (test code = 381) 140 meq/L 135-148 POTASSIUM (BEAKER) (test code = 379) 3.8 meq/L 3.6-5.5 CHLORIDE (BEAKER) (test code = 382) 101 meq/L 98-106 CO2 (BEAKER) (test code = 355) 29 meq/L 24-32 BLOOD UREA NITROGEN (BEAKER) (test code = 354) 11 mg/dL 10-26 CREATININE (BEAKER) (test code = 358) 0.83 mg/dL 0.50-1.20 GLUCOSE RANDOM (BEAKER) (test code = 652) 88 mg/dL 70-110 CALCIUM (BEAKER) (test code = 697) 9.2 mg/dL 8.5-10.5 EGFR (BEAKER) (test code = 1092) 81 mL/min/1.73 sq m ESTIMATED GFR IS NOT ACCURATE CREATININE CLEARANCE IN PREDICTING GLOMERULAR FILTRATION RATE. ESTIMATED GFR IS NOT APPLICABLE FOR DIALYSIS PATIENTS. CBC W/PLT COUNT & AUTO [id number] 21:52:00* Test Item Value Reference Range Interpretation Comments WHITE BLOOD CELL COUNT (BEAKER) (test code = 775) 6.6 10e3/ L 4.0- 10.0 RED BLOOD CELL COUNT (BEAKER) (test code = 761) 4.48 10e6/ L 4.00-5 .00 HEMOGLOBIN (BEAKER) (test code = 410) 9.2 g/dL 12.0-15.0 L HEMATOCRIT (BEAKER) (test code = 411) 30.2 % 36.0-45.0 L MEAN CORPUSCULAR VOLUME (BEAKER) (test code = 753) 67.5 fL 82. 0-99.0 L MEAN CORPUSCULAR HEMOGLOBIN (BEAKER) (test code = 751) 20.5 pg 27.0-33.0 L MEAN CORPUSCULAR HEMOGLOBIN CONC (BEAKER) (test code = 752) 30.4 g/dL 32.0-36.0 L RED CELL DISTRIBUTION WIDTH (BEAKER) (test code = 412) 15.8 % 10.3-14.2 H PLATELET COUNT (BEAKER) (test code = 756) 322 10e3/ L 150-430 MEAN PLATELET VOLUME (BEAKER) (test code = 754) 8.8 fL 6.5-10 .5 NEUTROPHILS RELATIVE PERCENT (BEAKER) (test code = 429) 53 % LYMPHOCYTES RELATIVE PERCENT (BEAKER) (test code = 430) 34 % MONOCYTES RELATIVE PERCENT (BEAKER) (test code = 431) 9 % EOSINOPHILS RELATIVE PERCENT (BEAKER) (test code = 432) 4 % BASOPHILS RELATIVE PERCENT (BEAKER) (test code = 437) 0 % NEUTROPHILS ABSOLUTE COUNT (BEAKER) (test code = 670) 3.47 10e3/ L 1.80-8.00 LYMPHOCYTES ABSOLUTE COUNT (BEAKER) (test code = 414) 2.26 10e3/ L 1.48-4.50 MONOCYTES ABSOLUTE COUNT (BEAKER) (test code = 415) 0.58 10e3/ L 0. 00-1.30 EOSINOPHILS ABSOLUTE COUNT (BEAKER) (test code = 416) 0.24 10e3/ L 0.00-0.50 BASOPHILS ABSOLUTE COUNT (BEAKER) (test code = 417) 0.03 10e3/ L 0. 00-0.20
--- OUTSIDE RECORDS SUMMARY | 2020-02-05 11:03 | XMS REPORT | Clinical Summary ---
Author Author [facility] Address Unknown Phone Unavailable Care Team Providers Care Ornithology Teacher Name Role Phone System, Provider Not In [...] times daily with breakfast and dinner. Active atvcfgmh-lxqe-iaz-folic Take by 0 acid mouth. (FWEMBLIFNQFW-KLPO-SHMJOU LS-FOLIC ACID) 3,500-18-0.4 unit-mg-mg Chew Active b [...] each 0 device (AEROCHAMBER) Spcr inhaler. 7 Active Problems Not on file Social History [...] Not on file Results Not on fileafter 02/04/2019 Insurance Payer Benefit Subscriber ID Type Phone Address Plan / Group MEDICAID - MEDICAID [facility] xxxxxxxxx Medica id CARE [facility] [place] Contracted PLAN [facility] xxxxxxxxx MEDICARE MGD CARE MEDICARE HMO
--- OUTSIDE RECORDS SUMMARY | 2020-02-05 11:03 | XMS REPORT | Clinical Summary ---
Author Author [facility] ict Organization [facility] ict Address Unknown Phone Unavailable Care Team Providers Care Coil Maker Name Role Phone Ashely Najera MD PCP [phone] Allergies Comments Active Allergy Reactions Severity Noted Date Bleeding Aspirin 05/17/2009 Itch Penicillins 07/17/2006 Medications End Date Status Medication Sig Dispensed Refills Start Date Active VITAMIN C & E COMBINATION None Entered 0 OR Active CALCIUM 600 + D(3) OR None Entered 0 Active CENTRUM SILVER TAB None Entered 0 Active cyclosporine (RESTASIS) 1 Drop 2 0 0.05 % ophthalmic drops times daily. Active triamcinolone (KENALOG) Apply to 60 g 3 0.1 % topical affected area 2 creamIndications: Eczema 2 times daily. Active FERROUS SULFATE 325 mg Take 1 tablet 180 tablet 5 0 (65 mg iron) delayed by mouth 3 3 release times daily tabletIndications: with meals. Anemia, hemolytic, thalassemia minor, Medication refill Active loratadine (CLARITIN) 10 Take 1 tablet 90 tablet 0 mg tabletIndications: by mouth 3 Allergic rhinitis, cause daily. unspecified Active amitriptyline (ELAVIL) 25 Take 1 tablet 30 tablet 3 mg tabletIndications: by mouth at 3 Left upper extremity bedtime. numbness Active albuterol (PROVENTIL) 2.5 Inhale 3 mL 75 mL 11 mg /3 mL (0.083 %) by mouth 3 nebulizer every 6 hours solutionIndications: COPD as needed for (chronic obstructive Wheezing or pulmonary disease) Shortness of Breath. Active traMADol (ULTRAM) 50 mg Take 1 tablet 60 tablet 2 tabletIndications: CTS by mouth 2 4 (carpal tunnel syndrome), times daily Musculoskeletal disorder as needed for Pain. Active cetirizine (ZYRTEC) 10 mg Take 1 tablet 90 tablet 1 tabletIndications: by mouth 4 Allergic rhinitis, cause daily. unspecified, Sinus headache Active predniSONE (DELTASONE) 20 Use 2 tabs 18 tablet 0 mg tabletIndications: daily for 5 4 COPD exacerbation days then use 1 tab daily for 5 days then use 1/2 tab daily for 5 days. Active ferrous sulfate 325 mg Take 1 tablet 100 tablet 1 1 (65 mg iron) by mouth 4 tabletIndications: Anemia daily (with in chronic illness breakfast) TAKE WITH FOOD. Active CPAP DeviceIndications: Use device as 1 Device 0 REGINA (obstructive sleep directed. 5 apnea) Date of Study: 08/26/14 Diagnosis: REGINA 327.23 REM AHI: 17 (AHI=5.6) SaO2 emily: 81% CPAP Pressure: 10 cm H2O with heated humidifier: Yes with mask (fit to patient) and supplies as needed: Yes Chin Strap: Yes. Active acetaminophen-codeine Take 1 tablet 30 tablet 0 (TYLENOL/CODEINE #3) by mouth 5 300-30 mg per every 6 hours tabletIndications: as needed for Primary osteoarthritis of Pain. left shoulder Active cyclobenzaprine Take 1 tablet 30 tablet 0 04/03/20 1 (FLEXERIL) 10 mg by mouth 5 tabletIndications: nightly at Primary osteoarthritis of bedtime as left shoulder needed (pain). Active ferrous sulfate 325 mg Take 1 tablet 100 tablet 3 1 (65 mg iron) by mouth 6 tabletIndications: daily (with Anemia, unspecified breakfast). Active codeine-guaiFENesin Take 5 mL by 120 mL 0 02/13 (CHERATUSSIN AC) 10-100 mouth 3 times 7 mg/5 mL syrup daily as needed for Cough. Active traMADol (ULTRAM) 50 mg Take 1 tablet 30 tablet 0 tabletIndications: by mouth 8 Biliary colic every 6 hours as needed for Pain. Active Diclofenac Sodium Apply to 100 g 2 12/09/19 1 (VOLTAREN) 1 % affected area 8 GelIndications: Chronic Use twice left shoulder pain daily as needed for pain. Active fluticasone propionate Use 1 [place] 16 g 6 (FLONASE) 50 in each 9 mcg/actuation nasal nostril sprayIndications: daily. Seasonal allergic rhinitis, unspecified trigger, Sinus headache Active levothyroxine (SYNTHROID) Take 1 tablet 90 tablet 1 25 mcg tabletIndications: by mouth 0 Subclinical daily. hypothyroidism Active budesonide-formoterol Inhale 2 1 g 5 07/03 (SYMBICORT HFA) 80-4.5 Puffs by 0 mcg/actuation mouth 2 times inhalerIndications: daily. Chronic obstructive pulmonary disease, unspecified COPD type Active albuterol 90 Inhale 2 1 Inhaler 6 mcg/actuation Puffs by 0 inhalerIndications: mouth 4 times Chronic obstructive daily as pulmonary disease, needed for unspecified COPD type Wheezing. Active alendronate (FOSAMAX) 35 TAKE 1 TABLET 12 tablet 2 mg tabletIndications: BY MOUTH 0 Medicine refill WEEKLY TO PREVENT OSTEOPOROSIS. . Active simvastatin (ZOCOR) 10 mg TAKE 1 TABLET 90 tablet 2 tabletIndications: BY MOUTH 0 Hyperlipidemia, EVERY NIGHT unspecified AT BEDTIME hyperlipidemia type FOR CHOLESTEROL. - generic ok. Active pantoprazole (PROTONIX) TAKE 1 TABLET 90 tablet 1 40 mg delayed release BY MOUTH 0 tabletIndications: EVERY MORNING Gastroesophageal reflux BEFORE MEALS. disease, esophagitis presence not specified 07/22/2019 Discontinued (Reorder) albuterol 90 Inhale 2 1 Inhaler 6 mcg/actuation Puffs by 8 inhalerIndications: mouth 4 times Chronic obstructive daily as pulmonary disease, needed for unspecified COPD type Wheezing. 07/22/2019 Discontinued (Reorder) budesonide-formoterol Inhale 2 1 g 5 (SYMBICORT HFA) 80-4.5 Puffs by 8 mcg/actuation mouth 2 times inhalerIndications: daily. Chronic obstructive pulmonary disease, unspecified COPD type 07/22/2019 Discontinued (Reorder) alendronate (FOSAMAX) 35 TAKE 1 TABLET 12 tablet 2 mg tabletIndications: BY MOUTH 8 Medicine refill WEEKLY TO PREVENT OSTEOPOROSIS. . 09/05/2019 Discontinued (Reorder) simvastatin (ZOCOR) 10 mg TAKE 1 TABLET 90 tablet 2 tabletIndications: BY MOUTH 9 Hyperlipidemia, EVERY NIGHT unspecified AT BEDTIME hyperlipidemia type FOR CHOLESTEROL. - generic ok. 07/22/2019 Discontinued (Reorder) levothyroxine (SYNTHROID) Take 1 tablet 90 tablet 1 25 mcg tabletIndications: by mouth 9 Subclinical daily. hypothyroidism 07/22/2019 Discontinued (Reorder) pantoprazole (PROTONIX) TAKE 1 TABLET 0 40 mg delayed release BY MOUTH 9 tablet EVERY MORNING BEFORE MEALS 01/12/2020 Discontinued pantoprazole (PROTONIX) TAKE 1 TABLET 90 tablet 1 40 mg delayed release BY MOUTH 0 tabletIndications: EVERY MORNING Gastroesophageal reflux BEFORE MEALS. disease, esophagitis presence not specified Active Problems Problem Noted Date Biliary colic 07/24/2017 Overview: Added automatically from request for lorena corcoran [id number] Calculus of gallbladder without cholecystitis without obstruction 07/24/2017 Overview: Added automatically from request for lorena carrollery [id number] Cervical radiculopathy 04/09/2017 Hypoxia 06/26/2014 Breast cancer 05/26/2013 COPD (chronic obstructive pulmonary disease) 012 Upper respiratory infection 09/16/2011 History of lung cancer 04/14/2011 Anemia in chronic illness 04/14/2011 BMI 26.0-26.9,adult 04/14/2011 Status post lobectomy of lung 03/29/2010 Lung cancer 09/13/2009 Overview: Stage IA ([id number]) Lung adenoCA *03/08/09: CT chest: 9 mm nodule in RU L *05/07/09: RULobectomy with 1.2 cm haydee oCA, negative margins (0.1 cm), +lymphatic invasion, no vascular or per ineural invasion, 0/6 LN's Hyperlipidemia 07/27/2009 History of laryngeal cancer 02/19/2009 Personal history of breast cancer 02/19/2009 GERD (gastroesophageal reflux disease) 05/28/2007 Anemia, hemolytic, thalassemia minor 07/17/2006 Deafness 07/17/2006 Overview: Longstanding since high school - reads lips Encounters Care Team Description Date Type Specialty Amanda Mackenzie NP 02/03/2020 E-Visit Family Practice Ashely Najera MD Medications 01/12/2020 Refill Family Practice Ashely Najera MD Osteoarthritis of right knee, unspecifie d osteoarthritis type (Primary Dx); Hyperlipidemia, unspecified hyperlipidemia type; Diverticular disease; Visual impairment; Cataract of both eyes, unspecified cataract type; Cardiomegaly; Renal cyst, right; Encounter to discuss test results; Chronic bronchitis, unspecified chronic bronchitis type 09/05/2019 Telephonic Family Practice Encounter Umbilical pain 08/10/2019 Ancillary Radiology Procedure Ashely Najera MD Acute pain of right knee 07/25/2019 Ancillary Radiology Procedure Ashely Najera MD Female stress incontinence (Primary Dx); Subclinical hypothyroidism; Annual physical exam; Gastroesophageal reflux disease, esophagitis presence not specified; Chronic obstructive pulmonary disease, unspecified COPD type; Medicine refill; Acute pain of right knee; Umbilical pain 07/22/2019 Office Visit Family Practice Ashely Najera MD 07/22/2019 Orders Only Family Practice after 02/04/2019 Immunizations Name Administration Dates Next Due Herpes Zoster Vaccine In 03/07/2014 Clinic Influenza Vaccine 04/15/2016, 04/03/2015, , 04/06/2013, 03/21/2010, 04/05/2008, 04/05/2007 Influenza Vaccine, 05/11/2017 Seasonal, Injectable Influenza, 05/24/2019 VACCINE<Fluzone, High Dose>(PF) Influenza, Vaccine 03/26/2018 <FLUCELVAX>(Preservative- Free) PCV 13 (Pnuemococcal 03/30/2017 Conjugated 13 Valent) Pneumoccoccal 04/13/2012 Tdap Tetanus, diphtheria, 04/13/2013 acellular pertussis Vaccine Family History Medical History Relation Name Comments Hypertension Brother Pulmonary Brother LUNG CANCER Arthritis Mother Asthma Mother Diabetes Sister Hypertension Sister Relation Name Status Comments Brother Alive Brother Brother Daughter Alive Father Maternal Grandfather Maternal Grandmother Mother Paternal Grandmother Sister Alive Sister Sister Social History Date Tobacco Use Types Packs/Day Years Used Quit: 07/17/2002 Former Smoker Cigarettes 1 20 Smokeless Tobacco: Former User Tobacco Cessation: Counseling Given: No Drinks/Week oz/Week Comments Alcohol Use No Food Insecurity Answer Date Recorded Within the past 12 months, you worried that your Never nolan e 05/11/2017 food would run out before you got money to buy more. Within the past 12 months, the food you bought Never true 05/11/2017 just didn't last and you didn't have mo georgina to get more. Sex Assigned at Date Recorded Not on file Industry Job Start Date Occupation Not on file Not on file Not on file Travel End Travel History Travel Start No recent travel history available. Last Filed Vital Signs Reading Time Taken Comments Vital Sign 134/81 09/05/2019 3:27 PM CDT Blood Pressure 90 09/05/2019 3:27 PM CDT Pulse 36.3 C (97.3 F) 09/05/2019 3:27 PM CDT Temperature 18 07/22/2019 11:10 AM TECHNICIAN TERMINAL AND REPEATER Respiratory Rate - - Oxygen Saturation - - Inhaled Oxygen Concentration 64.4 kg (142 lb) 07/22/2019 11:10 AM TECHNICIAN TERMINAL AND REPEATER Weight 158 cm (5' 2.21") 07/22/2019 11:10 AM TECHNICIAN TERMINAL AND REPEATER Height 25.8 07/22/2019 11:10 AM TECHNICIAN TERMINAL AND REPEATER Body Mass Index Plan of Treatment Health Maintenance Due Date Last Done Comments IMM Pneumococcal Age 67 Completed 03/30/2017, and Up 04/13/2012 Procedures Comments Procedure Name Priority Date/Time Associated Diag nosis CT ABDOMEN AND PELVIS Routine 08/10/2019 Umbilica l pain CONTRAST 3:54 PM CDT XRAY KNEE 1 OR 2 VIEWS Routine 07/25/2019 Acute p ain of right knee (LIMITED-AP/LAT) 3:21 PM TECHNICIAN TERMINAL AND REPEATER URINE CULTURE Routine 07/22/2019 Female stress 1:40 PM TECHNICIAN TERMINAL AND REPEATER incontinence URINALYSIS Routine 07/22/2019 Female stress 1:40 PM TECHNICIAN TERMINAL AND REPEATER incontinence URINALYSIS Routine 07/22/2019 Female stress 1:40 PM TECHNICIAN TERMINAL AND REPEATER incontinence CBC Routine 07/22/2019 Annual physical exam 1:22 PM TECHNICIAN TERMINAL AND REPEATER CBC/DIFF Routine 07/22/2019 Annual physical exam 1:22 PM TECHNICIAN TERMINAL AND REPEATER THYROID STIMULATING Routine 07/22/2019 Subclinica l HORMONE (TSH) 1:22 PM TECHNICIAN TERMINAL AND REPEATER hypothyroidism Annual physical exam COMPREHENSIVE METABOLIC Routine 07/22/2019 Annual physical exam PANEL 1:22 PM TECHNICIAN TERMINAL AND REPEATER LIPID PROFILE Routine 07/22/2019 Annual physical exam 1:22 PM TECHNICIAN TERMINAL AND REPEATER after 02/04/2019 Results * CT ABDOMEN AND PELVIS CONTRAST (08/10/2019 3:54 PM CDT) Specimen Impressions Performed At IMPRESSION: SMS 1. No acute intra-abdominal abnormali ties to explain patient's reported pain. 2. 1.3 cm mildly complex right renal cyst since 2010, however, this lesion previously measured simple fluid . This may represent new proteinaceous or hemorrhagic component. Recommend short-term follow-up renal ultrasound in 6 months to kassidy britt. 3. Diverticulosis without evidence of diverticulitis. 4. Mild cardiomegaly. Dictated By: Richard Cowart DO, PGY2, 5:50 PM I have reviewed the study and agree wit h the findings in this report. Signed By: Giuliano Duffy MD, 08/11/19 20 6:25 PM Narrative Performed At EXAM: CT Abdomen and Pelvis WITH contrast [facility] INDICATION: Abd pain, acute, generalize d COMPARISON: Abdominal CT 07/08/2010, abdo sarmad ultrasound 04/29/2017 TECHNIQUE: Abdomen and pelvis were scan christophe utilizing a multidetector helical scanner from the lung base to t he pubic symphysis after administration of IV contrast. Coronal and sagittal reformations were obtained. Routine protocol was performe d. Scan was performed when during portal venous phase. IV CONTRAST: 150 mL of Omnipaque 300 ORAL CONTRAST: Gastrografin COMPLICATIONS: None RADIATION DOSE: Total DLP: 406.3 mGy*cm Estimated effective dose: (DLP x 0.015 x size factor) mSv CTDIvol has been reviewed. It is below the limits set by the Radiation Protocol Committee (RPC). FINDINGS: LINES and TUBES: None. LOWER THORAX: Bilateral dependent ate lectasis/scarring. Mildly enlarged cardiac silhouette. HEPATOBILIARY: No focal hepatic lesions . No biliary ductal dilation. GALLBLADDER: There are cholecystectomy clips. SPLEEN: No splenomegaly. PANCREAS: No focal masses or ductal dil atation. ADRENALS: No adrenal nodules KIDNEYS/URETERS: Kidneys enhance symmet rically. No hydronephrosis. 1.3 x 1.3 x 1.2 cm right interpolar hypoden se lesion with 30 Hounsfield units internal density (series 2 image 35) corresponds to the previously visualized 1.3 cm mildly complex cyst w ith mural calcifications on abdominal ultrasound from 04/29/2017. T his lesion is stable in size since CT dated 07/16/2010, however, prev iously measured simple fluid No stones. GI TRACT: No abnormal distention, wall thickening, or evidence of bowel obstruction. There are diverticula wi thin the colon without evidence of diverticulitis. Appendix is normal. PELVIC ORGANS/BLADDER: There are postop changes of hysterectomy and bilateral oophorectomies. Bladder is un remarkable. LYMPH NODES: No lymphadenopathy. VESSELS: There is moderate atherosclero tic disease in the aorta and major arterial branches. PERITONEUM / RETROPERITONEUM: No free a ir or fluid. BONES: Unremarkable. SOFT TISSUES: Unremarkable. Procedure Note Interface, Rad/Mammog In - 08/11/2019 6:30 PM CDT EXAM: CT Abdomen and Pelvis WITH contrast INDICATION: Abd pain, acute, generalized COMPARISON: Abdominal CT 07/08/2010, abdominal ultrasound 04/29/2017 TECHNIQUE: Abdomen and pelvis were scanned utilizing a multidetector helical scanner from the lung base to the pubic symphysis after administration of IV contrast. Coronal and sagittal reformations were obtained. Routine protocol was performed. Scan was performed when during portal venous phase. IV CONTRAST: 150 mL of Omnipaque 300 ORAL CONTRAST: Gastrografin COMPLICATIONS: None RADIATION DOSE: Total DLP: 406.3 mGy*cm Estimated effective dose: (DLP x 0.015 x size factor) mSv CTDIvol has been reviewed. It is below the limits set by the Radiation Protocol Committee (RPC). FINDINGS: LINES and TUBES: None. LOWER THORAX: Bilateral dependent atelectasis/scarring. Mildly enlarged cardiac silhouette. HEPATOBILIARY: No focal hepatic lesions. No biliary ductal dilation. GALLBLADDER: There are cholecystectomy clips. SPLEEN: No splenomegaly. PANCREAS: No focal masses or ductal dilatation. ADRENALS: No adrenal nodules KIDNEYS/URETERS: Kidneys enhance symmetrically. No hydronephrosis. 1.3 x 1.3 x 1.2 cm right interpolar hypodense lesion with 30 Hounsfield units internal density (series 2 image 35) corresponds to the previously visualized 1.3 cm mildly complex cyst with mural calcifications on abdominal ultrasound from 04/29/2017. This lesion is stable in size since CT dated 07/16/2010, however, previously measured simple fluid No stones. GI TRACT: No abnormal distention, wall thickening, or evidence of bowel obstruction. There are diverticula within the colon without evidence of diverticulitis. Appendix is normal. PELVIC ORGANS/BLADDER: There are postop changes of hysterectomy and bilateral oophorectomies. Bladder is unremarkable. LYMPH NODES: No lymphadenopathy. VESSELS: There is moderate atherosclerotic disease in the aorta and major arterial branches. PERITONEUM / RETROPERITONEUM: No free air or fluid. BONES: Unremarkable. SOFT TISSUES: Unremarkable. IMPRESSION IMPRESSION: 1. No acute intra-abdominal abnormaliti es to explain patient's reported pain. 2. 1.3 cm mildly complex right renal cy st since 2010, however, this lesion previously measured simple fluid. This may represent new proteinaceous or hemorrhagic component. Recommend short-term follow-up renal ultrasound in 6 months to document ability. 3. Diverticulosis without evidence of d iverticulitis. 4. Mild cardiomegaly. Dictated By: Richard Cowart DO, PGY2, 08/10/2019 5:50 PM I have reviewed the study and agree with the findings in this report. Signed By: Giuliano Duffy MD, 08/11/2019 6:25 PM Performing Organization Address City/State/Zipcode Ph one Number SMS * XRAY KNEE 1 OR 2 VIEWS (LIMITED-AP/LAT) (07/25/2019 3:21 PM TECHNICIAN TERMINAL AND REPEATER) Specimen Impressions Performed At IMPRESSION: SMS 1. No acute osseous lesion. 2. Grade 2, mild osteoarthrosis of th e right knee. 3. Small to moderate right knee effus ion. If the report is "FINALIZED" it indicat es that the attending/staff radiologist has reviewed the images and agrees with the resident's interpretation. Dictated By: Glenna Escobar MD, 020 4:50 PM I have reviewed the study and agree wit h the findings in this report. Signed By: Roel Mendoza MD, 07/26/2019 9: 41 AM Narrative Performed At EXAMINATION: XRAY KNEE 1 OR 2 VIEWS (LIMITED-AP/LAT) SMS SIDE: RIGHT INDICATION: knee pain COMPARISON: None. FINDINGS: BONE: No acute displaced fracture. JOINTS: Mild medial compartment joint space tomer rowing. Minimal tricompartmental osteophytosis. SOFT TISSUES: Small to moderate right knee joint effu nicho. Procedure Note Interface, Rad/Mammog In - 07/26/2019 9:47 AM TECHNICIAN TERMINAL AND REPEATER EXAMINATION: XRAY KNEE 1 OR 2 VIEWS (LIMITED-AP/LAT) SIDE: RIGHT INDICATION: knee pain COMPARISON: None. FINDINGS: BONE: No acute displaced fracture. JOINTS: Mild medial compartment joint space narrowing. Minimal tricompartmental osteophytosis. SOFT TISSUES: Small to moderate right knee joint effusion. IMPRESSION IMPRESSION: 1. No acute osseous lesion. 2. Grade 2, mild osteoarthrosis of the right knee. 3. Small to moderate right knee effusio n. If the report is "FINALIZED" it indicates that the attending/staff radiologist has reviewed the images and agrees with the resident's interpretation. Dictated By: Glenna Escobar MD, 07/25/2019 4:50 PM I have reviewed the study and agree with the findings in this report. Signed By: Roel Mendoza MD, 07/26/2019 9:41 AM Performing Organization Address [facility] Ph one Number SMS * Urinalysis (07/22/2019 1:40 PM TECHNICIAN TERMINAL AND REPEATER) Color Anjali (A) Colorless, Straw, [facility] Yellow [facility] Clarity Cloudy (A) Clear [facility] Spec [place], 1.021 1.001 - 1.035 [facility] Ur [facility] pH, Ur 5.0 5.0 - 8.0 [facility] Protein, Ur Negative Negative mg/dL [facility] Glucose, Ur Negative Negative mg/dL [facility] Ketone, Ur Negative Negative mg/dL [facility] Bilirubin, Ur Negative Negative mg/dL [facility] Nitrite, Ur Negative Negative [facility] Leukocyte trace (A) Negative mg/dL [facility] Blood, Ur Negative Negative mg/dL [facility] RBC 4 0 - 4 /HPF [facility] WBC 1 0 - 5 /HPF [facility] Epithelial Cell 7 (H) <=1 /HPF [facility] Mucous Present (A) None seen /HPF [facility] Hyaline Cast 1 0 - 2 /LPF [facility] Urobilinogen, <1.0 <1.0 EU/dL [facility] Specimen Urine Performing Organization Address [facility] Ph one Number [facility] [address] [place] [address] [phone] * Urine Culture (07/22/2019 1:40 PM TECHNICIAN TERMINAL AND REPEATER) Urine Culture Urogenital cinthya [facility] Specimen Urine - Clean Catch [place] Performing Organization Address [facility] one Number [facility] [address] [place] [address] * CBC/Diff (07/22/2019 1:22 PM TECHNICIAN TERMINAL AND REPEATER) WBC 6.7 4.5 - 11.0 K/uL [facility] RBC 5.09 4.20 - 5.40 M/uL [facility] Hemoglobin 10.4 (L) 12.0 - 16.0 g/dL [facility] Hematocrit 35.4 (L) 37.0 - 47.0 % [facility] MCV 69.5 (L) 82.0 - 92.0 fL [facility] MCH 20.4 (L) 27.0 - 32.0 pg [facility] MCHC 29.4 (L) 32.0 - 36.0 g/dL [facility] RDW 41.6 36.4 - 46.3 fL [facility] Platelet 361 150 - 400 K/uL [facility] Mean Platelet 12.0 9.4 - 12.4 fL [facility] Volume [facility] Percent NRBC 0.0 % [facility] Neutrophil 52.7 34.0 - 70.0 % [facility] Lymphs 36.2 20.0 - 50.0 % [facility] Monocytes 7.6 5.0 - 12.0 % [facility] Eos 2.8 0.7 - 5.0 % [facility] Basos 0.4 0.1 - 1.2 % [facility] Immature 0.3 0.0 - 0.5 % [facility] Granulocytes LAB[facility] Neutrophils 3.55 1.56 - 6.13 K/uL [facility] (Absolute) [facility] Lymphs 2.44 1.18 - 3.74 K/uL [facility] (Absolute) [facility] Monocytes(Absol 0.51 (H) 0.24 - 0.36 K/uL [facility] xaio) LABORATORY Eos (Absolute) 0.19 0.04 - 0.36 K/uL [facility] Baso (Absolute) 0.03 0.01 - 0.08 K/uL [facility] Immature Grans 0.02 0.00 - 0.03 K/uL [facility] (Abs) [facility] Absolute NRBC 0.00 K/uL [facility] Specimen Blood Performing Organization Address [facility] one Number [facility] [address] [place] [address] [phone] * Comprehensive Metabolic Panel (07/22/2019 1:22 PM TECHNICIAN TERMINAL AND REPEATER) Sodium 144 136 - 145 mmol/L [facility] Potassium 4.7 3.5 - 5.1 mmol/L [facility] Chloride 105 98 - 107 mmol/L [facility] CO2 30 21 - 31 mmol/L [facility] Glucose 92 70 - 110 mg/dL [facility] Calcium 9.6 8.6 - 10.3 mg/dL [facility] Urea Nitrogen 9.0 7.0 - 25.0 mg/dL [facility] Creatinine 0.8 0.6 - 1.2 mg/dL [facility] Alkaline 76 34 - 104 U/L [facility] Phosphatase LABORATORY ALT 12 7 - 52 U/L [facility] AST 16 13 - 39 U/L [facility] Bilirubin, 1.0 0.2 - 1.2 mg/dL [facility] Total [facility] Total Protein 7.3 6.0 - 8.3 g/dL [facility] eGFR If Africn 84 (L) >=90 mL/min/1.73 m2 [facility] Am [facility] Albumin 4.6 3.7 - 5.3 g/dL [facility] Anion Gap 9 5 - 16 mmol/L [facility] Specimen Blood Performing Organization Address [facility] one Number [facility] [address] [place] [address] * TSH (07/22/2019 1:22 PM TECHNICIAN TERMINAL AND REPEATER) TSH 2.00 0.45 - 5.33 uIU/mL [facility] Comment: LABORATORY If , please see the following reference ranges (not verified by lab): 1st Trimester: 0.05 -3.70 uIU/mL 2nd Trimester: 0.31 -4.35 uIU/mL 3rd Trimester: 0.41 - 5.18 uIU/mL Specimen Blood Performing Organization Address City/[facility] one Number [facility] [address] [place] [address] [phone] * Lipid Profile (07/22/2019 1:22 PM TECHNICIAN TERMINAL AND REPEATER) Cholesterol 179.0 <=200.0 mg/dL [facility] Triglyceride 130 <150 mg/dL [facility] HDL 58.0 See Reference Range [facility] Narrative. mg/dL LABORATORY LDL 95 <100 mg/dL [facility] Comment: LABORATORY Optimal: < 100.0 mg/dL Near Optimal: 120-129 mg/dL Borderline: 130-159 mg/dL High: 160-189 mg/dL Very High: >=190 mg/dL Patient Yes [facility] Fasting? LABORATORY Specimen Blood Performing Organization Address City/[facility]/Zipcode Ph one Number [facility] [address] [place] [address] [phone] after 02/04/2019 Insurance Type Payer Benefit Subscriber ID Effective Phone Address Plan / Dates Group [facility] xxxxxxxxx 2019-6 [address] MEDICARE MEDICARE [id number] [place] [address] [facility] xxxxxxxxx 2011-P [phone] [address] [employer] [place] [id number] [place] [address] Advance Directives Date Inactivated Comments Code Status Date Activated 09/16/2017 1:48 PM Full Code 09/15/2017 5:50 PM 10/07/2010 2:42 PM Full Code 10/03/2010 10:39 AM
--- NOTE | 2020-02-05 12:09 | Emergency Department Note ---
History of Present Illnes History of Present Illness Chief Complaint: Respiratory History of Present Illness This is a 79 year old female Chief Complaint Comment Reports a cough since Thursday and reports a loss of taste and smell since yesterday. . Historian: Patient, Family Member Arrival Mode: Car Onset (how long ago): day(s) (3) Location: chest Quality: cough Radiation: Denies non-radiation, Denies back, Denies neck, Denies extremity, Denies abdomen, Denies periumbilical, Denies flank, Denies proximal, Denies distal, Denies other Severity: mild Onset quality: gradual Duration (how long): day(s) (3) Timing of current episode: intermittent Progression: waxing and waning Chronicity: new Context: Denies recent illness, Denies recent surgery, Denies recent immobilization, Denies recent travel, Denies trauma/injury, Denies new medications, Denies hx of DVT/PE, Denies non-compliance w/ medications, Denies other Relieving factors: none Exacerbating factors: none Associated symptoms: Reports cough; Denies denies other symptoms, Denies confusion, Denies chest pain, Denies diaphoresis, Denies fever/chills, Denies headaches, Denies loss of appetite, Denies malaise, Denies nausea/vomiting, Denies rash, Denies seizure, Denies shortness of breath, Denies syncope, Denies weakness, Denies other Treatments prior to arrival: none Past Medical/Family History Physician Review I have reviewed the patient's past medical and family history. Any updates have been documented here. Past Medical History Recent Fever: No Clinical Suspicion of Infectio: No New/Unexplained Change in Ment: No Past Medical History: Hypothyroidism, Cancer, GERD, Hyperlipedemia Other Medical History: Deaf (reads lips) breast cancer lung cancer throat cancer Past Surgical History: Cholecysctectomy, Hysterectomy, T&A, Lumpectomy Other Surgery: part of her right lung removed throat surgery for cancer Social History Smoking Cessation: Former smoker Counseling Performed: No Alcohol Use: None Any Illegal Drug Use: No Physically hurt or threatened: No Other Last Tetanus: UTD Any Pre-Existing Lines (PICC,: No Review of Systems Review of Systems Constitutional: Reports no symptoms EENTM: Reports no symptoms Cardiovascular: Reports no symptoms Respiratory: Reports as per HPI Gastrointestinal: Reports no symptoms Genitourinary: Reports no symptoms Musculoskeletal: Reports no symptoms Integumentary: Reports no symptoms Neurological: Reports no symptoms Psychological: Reports no symptoms Endocrine: Reports no symptoms Hematological/Lymphatic: Reports no symptoms Physical Exam Related Data Allergies: Coded Allergies: Penicillins (Unverified Allergy, Intermediate, 10/19/17) aspirin (Unverified Allergy, Intermediate, 10/19/17) Triage Vital Signs Vital Signs Date Time Temp Pulse Resp B/P (MAP) Pulse Ox O2 Delivery O2 Flow Rate FiO2 02/05/20 10:30 97.1 85 16 153/77 98 Room Air Vital signs reviewed: Yes Physical Exam CONSTITUTIONAL Constitutional: Present well-developed, Present well-nourished HENT HENT: Present normocephalic, Present atraumatic, Present oropharynx clear/moist, Present nose normal HENT L/R: Present left ext ear normal, Present right ext ear normal EYES Eyes: Reports PERRL, Reports conjunctivae normal NECK Neck: Present ROM normal PULMONARY Pulmonary: Present effort normal, Present breath sounds normal CARDIOVASCULAR Cardiovascular: Present regular rhythm, Present heart sounds normal, Present capillary refill normal, Present normal rate GASTROINTESTINAL Abdominal: Present soft, Present nontender, Present bowel sounds normal GENITOURINARY Genitourinary: Present exam deferred SKIN Skin: Present warm, Present dry MUSCULOSKELETAL Musculoskeletal: Present ROM normal NEUROLOGICAL Neurological: Present alert, Present oriented x 3, Present no gross motor or sensory deficits PSYCHOLOGICAL Psychological: Present mood/affect normal, Present judgement normal Results Imaging Imaging results reviewed: Yes Assessment & Plan Medical Decision Making MDM bronhirts pneumonia Reassessment Reassessment better Assessment & Plan Final Impression: (1) Acute bronchitis Depart Disposition: HOME, SELF-CARE Last Vital Signs Date Time Temp Pulse Resp B/P (MAP) Pulse Ox O2 Delivery O2 Flow Rate FiO2 02/05/20 10:30 97.1 85 16 153/77 98 Room Air Home Meds Active Scripts Ferrous Sulfate (FERROUS SULFATE) 325 Mg Tablet, 325 MG PO BIDWM for 30 Days Prov:MOO ALMENDAREZ GUIDE ESCORT 10/11/18 Ascorbic Acid (ASCORBIC ACID) 500 Mg Tablet, 500 MG PO BID for 30 Days Prov:MOO ALMENDAREZ GUIDE ESCORT 10/11/18 Reported Medications Fluticasone Propionate (FLUTICASONE PROPIONATE) 16 Gm [place].susp, 50 MCG NS DAILY 10/07/18 Cetirizine Hcl (CETIRIZINE HCL) 10 Mg Tablet, 10 MG PO DAILY 10/07/18 Mu-Vits-Min Th/Lycopene/Lutein (CENTRUM SILVER TABLET) 1 Each Tablet, PO DAILY 10/07/18 Calcium Carbonate/Vitamin D3 (CALCIUM 600 + D3 SOFTGEL) 1 Each Capsule, PO DAILY 10/07/18 Albuterol Sulfate (ALBUTEROL SULFATE) 0.63 Mg/3 Ml Vial.neb, 2.5 MG NEB Q6H PRN for SHORTNESS OF BREATH 10/07/18 Budesonide/Formoterol Fumarate (SYMBICORT 160-4.5 MCG INHALER) 10.2 Gm Hfa.aer.ad, INH BID 10/06/18 Albuterol Sulf* (PROAIR HFA INHALER*) 8.5 Gm Inh, INH QID PRN for SHORTNESS OF BREATH 10/06/18 Simvastatin (SIMVASTATIN) 40 Mg Tablet, 40 MG PO 2099, #30 TAB 10/06/18 Levothyroxine Sodium (LEVOTHYROXINE SODIUM) 50 Mcg Tablet, 25 MCG PO DAILY, #30 TAB 10/06/18 TYRONE RODRÍGUEZ MD Feb 05, 2020 12:09
[2020-02-05] MEDS ORDERED: AZITHROMYCIN250 MG PO (12:11)
--- NOTE | 2020-02-05 12:19 | Diagnostic Imaging Report ---
EXAMINATION: CXR 1 W - [facility] INDICATION: cough COMPARISON: Chest x-ray dated 09/14/2018. FINDINGS: TUBES and LINES: None. LUNGS: Surgical clips in the right hilar region with volume loss in the right chest an elevated right hemidiaphragm are unchanged. There is no evidence of pneumonia or pulmonary edema. PLEURA: No pleural effusion or pneumothorax. HEART AND MEDIASTINUM: The cardiomediastinal silhouette is unremarkable. BONES AND SOFT TISSUES: No acute osseous lesion. Soft tissues are unremarkable. UPPER ABDOMEN: No free air under the diaphragm. IMPRESSION: No significant interval change. No new acute chest finding. Signed by: Joss Oglesby MD on 02/05/2020 12:16 PM
== END 2020-02-05 12:37 | disposition home or self-care (01) ==
LOC: FSED 10:50
DX: J20.9 Acute bronchitis, unspecified (principal); R05 Cough; E78.5 Hyperlipidemia, unspecified; E03.9 Hypothyroidism, unspecified; K21.9 Gastro-esophageal reflux disease without esophagitis; H91.3 Deaf nonspeaking, not elsewhere classified; Z85.3 Personal history of malignant neoplasm of breast; Z85.118 Personal history of other malignant neoplasm of bronchus and lung; Z85.818 Personal history of malignant neoplasm of other sites of lip, oral cavity, and pharynx
CPT/HCPCS: 71045; 99283; U0002

== ENCOUNTER → 2020-05-31 | Outpatient (CLI) | payer OTHER ==
[~2020-05-31] MED LIST changes: +AZITHROMYCIN250 MG PO; +COVID-19 VACC, MRNA(MODERNA)/PF 100 MCG/0.5 ML VIAL IM ONE
== END ==
LOC: VACCPMC 19:30
DX: Z23 Encounter for immunization (principal); Z20.828 Contact with and (suspected) exposure to other viral communicable diseases

== ENCOUNTER → 2020-07-03 | Outpatient (CLI) | payer OTHER | END | DRG 951 | LOC: VACCPMC 10:40 | DX: Z23 Encounter for immunization (principal); Z20.822 Contact with and (suspected) exposure to COVID-19 | CPT/HCPCS: 0012A; 91301 ==

== ENCOUNTER 2021-04-01 19:44 | Emergency (ER) | payer MEDICARE, OTHER ==
[~2021-04-01] VITALS: Ht 162.6 cm; Wt 63.5 kg
[~2021-04-01 19:44] MED LIST changes: -COVID-19 VACC, MRNA(MODERNA)/PF 100 MCG/0.5 ML VIAL IM ONE
[2021-04-01] MEDS ORDERED: SODIUM CHLORIDE 0.9% 1000ML 1,000 ML IV SCH (21:15)
[2021-04-01] MEDS ORDERED: IOPAMIDOL 370 MG/ML 200 ML INFUS..BTL INJ ONE (22:00)
[2021-04-01] MEDS ORDERED: SODIUM CHLORIDE 0.9% 50ML 50 ML ONE (22:00)
[2021-04-01] MEDS ORDERED: FAMOTIDINE 20 MG/2 ML VIAL IV STA (22:22)
[2021-04-01] MEDS ORDERED: FAMOTIDINE 20 MG/2 ML VIAL IV ONE (22:39)
[2021-04-01] MEDS ORDERED: SODIUM CHLORIDE 0.9% 1000ML 1,000 ML ONE (22:39)
[2021-04-01] MEDS ORDERED: CIPROFLOXACIN 400 MG/D5W 200ML 200 ML IV ONE ×2 (23:11→23:15)
[2021-04-01] MEDS ORDERED: METRONIDAZOLE 500MG/NS 100ML 100 ML IV ONE ×2 (23:11→23:15)
[2021-04-01] MEDS ORDERED: ONDANSETRON ODT4 MG PO (23:21)
[2021-04-01] MEDS ORDERED: CIPRO500 MG PO (23:22)
[2021-04-01] MEDS ORDERED: METRONIDAZOLE500 MG PO (23:23)
[2021-04-01] MEDS ORDERED: DICYCLOMINE HCL20 MG PO (23:24)
== END 2021-04-02 00:53 | disposition home or self-care (01) ==
LOC: FSED 20:50
DX: R10.30 Lower abdominal pain, unspecified (principal); R11.2 Nausea with vomiting, unspecified; K57.32 Diverticulitis of large intestine without perforation or abscess without bleeding; D64.9 Anemia, unspecified; E78.5 Hyperlipidemia, unspecified; E03.9 Hypothyroidism, unspecified; H91.3 Deaf nonspeaking, not elsewhere classified; K21.9 Gastro-esophageal reflux disease without esophagitis; Z85.3 Personal history of malignant neoplasm of breast; Z85.118 Personal history of other malignant neoplasm of bronchus and lung
CPT/HCPCS: 74177; 80048; 80076; 81003; 85025; 99284; J0744; J7030; Q9967

== ENCOUNTER 2022-07-03 20:12 | Observation (INO) | payer MEDICARE, OTHER ==
[~2022-07-03] VITALS: Ht 162.6 cm; Wt 54.4 kg
[2022-07-03] MEDS: ALBUTEROL SULF 0.083% NEB SOLN 3 ML NEB NEB SCH (01:05)
[~2022-07-03 20:12] MED LIST changes: +CIPRO500 MG PO; +DICYCLOMINE HCL20 MG PO; +METRONIDAZOLE500 MG PO; +ONDANSETRON ODT4 MG PO
[2022-07-03] MEDS ORDERED: SODIUM CHLORIDE 0.9% 500ML 500 ML IV ONE (21:15)
[2022-07-03 21:40] LABS: ALANINE AMINOTRANSFERASE 9 IU/L (0-55); ALBUMIN 3.6 g/dL (3.5-5.0); ALBUMIN/GLOBULIN RATIO 0.8 (0.8-2.0); ALKALINE PHOSPHATASE 67 IU/L (40-150); ANION GAP 15.9 mmol/L (8-16); BASOPHILS # (AUTO) 0.1 (0.0-0.1); BASOPHILS % 0.4 % (0.0-1.0); BLOOD UREA NITROGEN 13 mg/dL (7-26); BUN/CREATININE RATIO 12 (6-25); CALCIUM 9.9 mg/dL (8.4-10.2); CARBON DIOXIDE 22 mmol/L (22-29); CHLORIDE 103 mmol/L (98-107); CREATINE KINASE 51 IU/L (29-168); CREATININE, SERUM 1.08 mg/dL (0.57-1.11); EOSINOPHILS % 0.1 % (0.0-6.0); GLUCOSE 131 mg/dL (74-118); HEMATOCRIT 34.3 % (34.2-44.1); HEMOGLOBIN 10.7 g/dL (12.0-16.0); LYMPHOCYTES # (AUTO) 2.8 (1.0-3.2); LYMPHOCYTES % 12.9 % (18.0-39.1); MEAN CORPUSCULAR HGB CONC 31.2 g/dL (31-35); MONOCYTES # (AUTO) 1.2 (0.2-0.8); MONOCYTES % 5.4 % (4.4-11.3); NEUTROPHILS # (AUTO) 17.2 (2.1-6.9); NEUTROPHILS % 80.5 % (38.7-80.0); PLATELET COUNT 386 x10e3/uL (140-360); POTASSIUM 3.9 mmol/L (3.5-5.1); RED BLOOD COUNT 5.36 x10e6/uL (3.6-5.1); RED CELL DISTRIBUTION WIDTH 16.1 % (11.7-14.4); SODIUM 137 mmol/L (136-145)
[2022-07-03 21:44] LABS: CREATINE KINASE MB < 1.00 ng/mL (0-4.3)
[2022-07-03] MEDS ORDERED: SODIUM CHLORIDE 0.9% 1000ML 1,000 ML IV ONE (21:45)
[2022-07-03] MEDS ORDERED: CEFTRIAXONE 1 GM VIAL ONE (22:19)
[2022-07-03 23:14] LABS: CLARITY,URINE SL CLOUDY (CLEAR); COLOR,URINE YELLOW (YELLOW); KETONES,URINE NEGATIVE (NEGATIVE); LEUKOCYTE ESTERASE ,URINE TRACE (NEGATIVE); NITRITE,URINE NEGATIVE (NEGATIVE); PROTEIN,URINE DIPSTICK NEGATIVE (NEGATIVE); URINE UROBILINOGEN 0.2 mg/dL (0.2 - 1)
[2022-07-03 23:19] LABS: AMORPHOUS SEDIMENT,URINE FEW (FEW); BACTERIA,URINE FEW /HPF; EPITHELIAL CELLS,URINE FEW /LPF; RBC,URINE 0-5 /HPF (0-5)
[2022-07-03] MEDS ORDERED: ACETAMINOPHEN 325 MG TAB PO PRN (23:30)
[2022-07-03] MEDS ORDERED: SODIUM CHLORIDE FLUSH 10 ML SYR INJ PRN (23:30)
[2022-07-04] MEDS: ALBUTEROL SULF 0.083% NEB SOLN 3 ML NEB NEB SCH ×6 (00:20→20:35)
[2022-07-04] MEDS: IPRATROPIUM BROMIDE 0.02% 2.5 ML NEB NEB SCH ×4 (01:05→20:35)
[2022-07-04 08:16] LABS: BASOPHILS # (AUTO) 0.1 (0.0-0.1); BASOPHILS % 0.3 % (0.0-1.0); EOSINOPHILS # (AUTO) 0.2 (0.0-0.4); EOSINOPHILS % 1.1 % (0.0-6.0); HEMATOCRIT 29.5 % (34.2-44.1); HEMOGLOBIN 8.7 g/dL (12.0-16.0); LYMPHOCYTES # (AUTO) 2.3 (1.0-3.2); LYMPHOCYTES % 15.8 % (18.0-39.1); MEAN CORPUSCULAR HGB CONC 29.5 g/dL (31-35); MONOCYTES # (AUTO) 0.8 (0.2-0.8); MONOCYTES % 5.3 % (4.4-11.3); NEUTROPHILS # (AUTO) 11.3 (2.1-6.9); NEUTROPHILS % 77.2 % (38.7-80.0); PLATELET COUNT 408 x10e3/uL (140-360); RED BLOOD COUNT 4.34 x10e6/uL (3.6-5.1); RED CELL DISTRIBUTION WIDTH 15.7 % (11.7-14.4)
[2022-07-04] MEDS ORDERED: ONDANSETRON HCL INJ 2MG/ML 2ML 2 MG/ML VIAL IV PRN (08:30)
[2022-07-04] MEDS ORDERED: ACETAMINOPHEN 325 MG TAB PO PRN (08:30)
[2022-07-04 08:38] LABS: ALBUMIN/GLOBULIN RATIO 0.8 (0.8-2.0); ANION GAP 11.3 mmol/L (8-16); CALCIUM 8.8 mg/dL (8.4-10.2); CREATININE, SERUM 0.75 mg/dL (0.57-1.11); POTASSIUM 3.3 mmol/L (3.5-5.1)
[2022-07-04] MEDS ORDERED: ALBUTEROL/IPRATROPIUM 3 ML NEB NEB PRN (08:45)
[2022-07-04] MEDS: SENNOSIDES 8.6 MG TAB PO SCH (09:00)
[2022-07-04] MEDS: DOCUSATE SODIUM 100 MG CAP PO SCH (09:00)
[2022-07-04 09:10] LABS: CREATINE KINASE 48 IU/L (29-168)
[2022-07-04 09:24] LABS: CREATINE KINASE MB < 1.00 ng/mL (0-4.3)
[2022-07-04 11:43] VITALS: BP 136/64
[2022-07-04 11:54] VITALS: BP 136/64
[2022-07-04 11:55] VITALS: BP 136/64
[2022-07-04 12:08] VITALS: BP 136/64
[2022-07-04 12:37] LABS: FERRITIN 465.67 ng/mL (4.63-204.00); THYROID STIMULATING HORMONE 0.975 uIU/mL (0.350-4.940)
[2022-07-04 13:28] LABS: HEMATOCRIT 28.5 % (34.2-44.1); HEMOGLOBIN 8.8 g/dL (12.0-16.0)
[2022-07-04 15:41] VITALS: BP 140/70
[2022-07-04] MEDS ORDERED: POTASSIUM CHLORIDE 20 MEQ TAB CR PO ONE (16:09)
[2022-07-04 17:02] LABS: CREATINE KINASE MB 1.4 ng/mL (0-5.0)
[2022-07-04 20:00] VITALS: BP 140/70
[2022-07-05] VITALS: BP 156/75
[2022-07-05] MEDS: IPRATROPIUM BROMIDE 0.02% 2.5 ML NEB NEB SCH ×2 (04:05→06:00)
[2022-07-05] MEDS: ALBUTEROL SULF 0.083% NEB SOLN 3 ML NEB NEB SCH ×3 (04:05→11:09)
[2022-07-05 04:40] VITALS: BP 147/69
[2022-07-05] MEDS ORDERED: LEVOTHYROXINE SODIUM 25 MCG TABLET PO SCH (06:00)
[2022-07-05 06:46] LABS: BASOPHILS % 0.3 % (0.0-1.0); EOSINOPHILS # (AUTO) 0.4 (0.0-0.4); HEMATOCRIT 27.5 % (34.2-44.1); HEMOGLOBIN 8.5 g/dL (12.0-16.0); LYMPHOCYTES # (AUTO) 1.8 (1.0-3.2); LYMPHOCYTES % 18.1 % (18.0-39.1); MEAN CORPUSCULAR HEMOGLOBIN 19.9 pg (28-32); MEAN CORPUSCULAR HGB CONC 30.9 g/dL (31-35); MEAN CORPUSCULAR VOLUME 64.4 fL (81-99); MONOCYTES # (AUTO) 0.7 (0.2-0.8); MONOCYTES % 7.4 % (4.4-11.3); NEUTROPHILS # (AUTO) 6.9 (2.1-6.9); NEUTROPHILS % 69.7 % (38.7-80.0); PLATELET COUNT 341 x10e3/uL (140-360); RED BLOOD COUNT 4.27 x10e6/uL (3.6-5.1)
[2022-07-05 07:11] LABS: ALBUMIN/GLOBULIN RATIO 0.8 (0.8-2.0); ANION GAP 12.4 mmol/L (8-16); CALCIUM 8.7 mg/dL (8.4-10.2); CREATININE, SERUM 0.64 mg/dL (0.57-1.11); MAGNESIUM 1.9 MG/DL (1.3-2.1); POTASSIUM 3.4 mmol/L (3.5-5.1)
[2022-07-05 08:00] VITALS: BP 147/69
[2022-07-05 08:02] VITALS: BP 143/75
[2022-07-05] MEDS: DOCUSATE SODIUM 100 MG CAP PO SCH (08:17)
[2022-07-05] MEDS: SENNOSIDES 8.6 MG TAB PO SCH (08:17)
[2022-07-05] MEDS ORDERED: POTASSIUM CHLORIDE 20 MEQ TAB CR PO ONE (10:30)
[2022-07-05] MEDS ORDERED: BENZONATATE100 MG PO (10:36)
[2022-07-05] MEDS ORDERED: LEVOFLOXACIN500 MG PO (10:36)
[2022-07-05 11:51] VITALS: BP 143/75
== END 2022-07-05 13:48 | disposition home or self-care (01) ==
LOC: ER 20:20 → ERHOLD 23:18 → MED/SURG2 07-04 10:53
PROVIDERS: ADMIT Internal Medicine; ATTEND Internal Medicine
DX: J18.9 Pneumonia, unspecified organism (principal); D72.829 Elevated white blood cell count, unspecified; K21.9 Gastro-esophageal reflux disease without esophagitis; H91.90 Unspecified hearing loss, unspecified ear; E03.9 Hypothyroidism, unspecified; D64.9 Anemia, unspecified; E78.2 Mixed hyperlipidemia; Z20.822 Contact with and (suspected) exposure to COVID-19; J96.01 Acute respiratory failure with hypoxia; Z85.3 Personal history of malignant neoplasm of breast; Z85.118 Personal history of other malignant neoplasm of bronchus and lung; Z90.2 Acquired absence of lung [part of]
CPT/HCPCS: 36415 ×3; 71046; 80053 ×3; 81001; 82550 ×2; 82553 ×2; 82607; 82728; 82746; 83540; 83605; 83735; 83880; 84443; 84466; 84484 ×2; 85014; 85018; 85025 ×3; 87040; 93005; 94640 ×2; 94799 ×2; 97161; 99285; G0378 ×3; J0456; J0696 ×2; J7030; J7040; J7050; U0002

== ENCOUNTER → 2022-08-25 | Outpatient (CLI) | payer MEDICARE, OTHER ==
[~2022-08-25] MED LIST changes: +BENZONATATE100 MG PO; +LEVOFLOXACIN500 MG PO
== END ==
LOC: RAD 12:22
PROVIDERS: ATTEND Internal Medicine
DX: R06.00 Dyspnea, unspecified (principal); Z90.2 Acquired absence of lung [part of]; Z85.118 Personal history of other malignant neoplasm of bronchus and lung
CPT/HCPCS: 71046

== ENCOUNTER 2023-03-15 13:39 | Inpatient (IN) | payer MEDICARE, OTHER ==
[~2023-03-15] VITALS: Ht 162.6 cm; Wt 59.0 kg
[~2023-03-15 13:39] MED LIST changes: +LOSARTAN POTASS25 MG PO; +PANTOPRAZOLE SO40 MG PO
[2023-03-15] MEDS ORDERED: ALBUTEROL SULF 0.083% NEB SOLN 3 ML NEB NEB STA (14:24)
[2023-03-15] MEDS ORDERED: LEVOFLOXACIN 500MG/D5W 100ML 100 ML IV ONE (14:30)
[2023-03-15 14:34] LABS: BASOPHILS % 0.5 % (0.0-1.0); EOSINOPHILS # (AUTO) 0.3 (0.0-0.4); HEMATOCRIT 29.7 % (34.2-44.1); HEMOGLOBIN 9.3 g/dL (12.0-16.0); LYMPHOCYTES # (AUTO) 2.5 (1.0-3.2); LYMPHOCYTES % 32.8 % (18.0-39.1); MEAN CORPUSCULAR HGB CONC 31.3 g/dL (31-35); MEAN CORPUSCULAR VOLUME 63.9 fL (81-99); MONOCYTES # (AUTO) 0.5 (0.2-0.8); MONOCYTES % 6.6 % (4.4-11.3); NEUTROPHILS # (AUTO) 4.3 (2.1-6.9); NEUTROPHILS % 55.8 % (38.7-80.0); PLATELET COUNT 402 x10e3/uL (140-360); RED BLOOD COUNT 4.65 x10e6/uL (3.6-5.1); WHITE BLOOD COUNT 7.72 x10e3/uL (4.8-10.8)
[2023-03-15 15:01] LABS: ALANINE AMINOTRANSFERASE 11 IU/L (0-55); ALBUMIN 4.1 g/dL (3.5-5.0); ALBUMIN/GLOBULIN RATIO 1.2 (0.8-2.0); ALKALINE PHOSPHATASE 72 IU/L (40-150); ANION GAP 12.6 mmol/L (8-16); BLOOD UREA NITROGEN 8 mg/dL (7-26); BUN/CREATININE RATIO 9 (6-25); CALCIUM 9.5 mg/dL (8.4-10.2); CARBON DIOXIDE 28 mmol/L (22-29); CHLORIDE 105 mmol/L (98-107); CREATINE KINASE 76 IU/L (29-168); CREATININE, SERUM 0.85 mg/dL (0.57-1.11); GLUCOSE 113 mg/dL (74-118); POTASSIUM 3.6 mmol/L (3.5-5.1); SODIUM 142 mmol/L (136-145)
[2023-03-15 15:04] LABS: STREPTOCOCCUS GRP A ANTIGEN NEGATIVE (NEGATIVE)
[2023-03-15 15:06] LABS: CLARITY,URINE CLEAR (CLEAR); COLOR,URINE YELLOW (YELLOW); KETONES,URINE NEGATIVE (NEGATIVE); LEUKOCYTE ESTERASE ,URINE NEGATIVE (NEGATIVE); NITRITE,URINE NEGATIVE (NEGATIVE); PROTEIN,URINE DIPSTICK NEGATIVE (NEGATIVE); URINE UROBILINOGEN 0.2 mg/dL (0.2 - 1)
[2023-03-15] MEDS ORDERED: IOPAMIDOL 370 MG/ML 100 ML INFUS..BTL INJ ONE (15:10)
[2023-03-15 15:14] LABS: INFLUENZAE A&B ANTIGEN (RAPID) NEGATIVE (NEGATIVE)
[2023-03-15 15:19] LABS: EPITHELIAL CELLS,URINE FEW /LPF; WBC,URINE (MAN) 0-5 /HPF (0-5)
[2023-03-15 15:20] VITALS: PULSE 70; RESP 20; O2SAT 97
[2023-03-15] MEDS ORDERED: SODIUM CHLORIDE 0.9% 1000ML 1,000 ML IV SCH (18:45)
[2023-03-15] MEDS ORDERED: ONDANSETRON HCL INJ 2MG/ML 2ML 2 MG/ML VIAL IV PRN (19:30)
[2023-03-15] MEDS ORDERED: HYDRALAZINE HCL 20 MG/ML VIAL IV PRN (19:30)
[2023-03-15] MEDS ORDERED: ACETAMINOPHEN 325 MG TAB PO PRN (19:30)
[2023-03-15] MEDS ORDERED: HYDROCODONE/APAP 7.5MG-325MG 1 EA TAB PO PRN (20:15)
[2023-03-15] MEDS ORDERED: HYDROCODONE/APAP 10MG-325MG TAB PO PRN (20:15)
[2023-03-15 20:26] VITALS: PULSE 69; RESP 19; O2SAT 97
[2023-03-15] MEDS: MELATONIN 3 MG TAB PO SCH (21:00)
[2023-03-15 22:50] VITALS: PULSE 67; RESP 15; O2SAT 100
[2023-03-15] MEDS: ALBUTEROL/IPRATROPIUM 3 ML NEB NEB SCH (23:00)
[2023-03-15] MEDS: BENZONATATE 100 MG CAP PO SCH (23:46)
[2023-03-16] VITALS (13 sets, daily range): BP systolic 130–158; BP diastolic 65–73; PULSE 63–85; RESP 16–20; TEMP 97.4–98.5; O2SAT 93–100
[2023-03-16] MEDS: ALBUTEROL/IPRATROPIUM 3 ML NEB NEB SCH ×6 (02:04→22:57)
[2023-03-16 03:16] LABS: CREATINE KINASE 57 IU/L (29-168)
[2023-03-16] MEDS ORDERED: BLINK TEARS15 ML OU (05:37)
[2023-03-16] MEDS ORDERED: FERROUS SULFAT324 MG PO (05:37)
[2023-03-16 05:46] LABS: BASOPHILS % 0.3 % (0.0-1.0); EOSINOPHILS # (AUTO) 0.3 (0.0-0.4); EOSINOPHILS % 4.6 % (0.0-6.0); HEMATOCRIT 26.9 % (34.2-44.1); HEMOGLOBIN 8.6 g/dL (12.0-16.0); LYMPHOCYTES % 30.7 % (18.0-39.1); MEAN CORPUSCULAR HEMOGLOBIN 20.2 pg (28-32); MEAN CORPUSCULAR VOLUME 63.3 fL (81-99); MONOCYTES # (AUTO) 0.5 (0.2-0.8); MONOCYTES % 7.4 % (4.4-11.3); NEUTROPHILS # (AUTO) 3.7 (2.1-6.9); NEUTROPHILS % 56.7 % (38.7-80.0); PLATELET COUNT 352 x10e3/uL (140-360); RED BLOOD COUNT 4.25 x10e6/uL (3.6-5.1); RED CELL DISTRIBUTION WIDTH 15.8 % (11.7-14.4); WHITE BLOOD COUNT 6.52 x10e3/uL (4.8-10.8)
[2023-03-16 06:07] LABS: ALBUMIN 3.6 g/dL (3.5-5.0); ALBUMIN/GLOBULIN RATIO 1.2 (0.8-2.0); ANION GAP 11.5 mmol/L (8-16); CREATINE KINASE 54 IU/L (29-168); CREATININE, SERUM 0.78 mg/dL (0.57-1.11); POTASSIUM 3.5 mmol/L (3.5-5.1)
[2023-03-16] MEDS: LEVOTHYROXINE SODIUM 25 MCG TABLET PO SCH (06:26)
[2023-03-16 06:59] LABS: FERRITIN 445.01 ng/mL (4.63-204.00)
[2023-03-16] MEDS: PANTOPRAZOLE SOD 40 MG TABEC PO SCH (08:29)
[2023-03-16] MEDS: AZITHROMYCIN 250 MG TAB PO SCH (08:30)
[2023-03-16] MEDS: LOSARTAN POTASSIUM 25 MG TAB PO SCH (08:30)
[2023-03-16] MEDS: BENZONATATE 100 MG CAP PO SCH ×3 (08:30→23:05)
[2023-03-16] MEDS: POLYETHYLENE GLYCOL 3350 17 GM PACK PO SCH (08:37)
[2023-03-16 08:43] LABS: MICROCYTOSIS SLIGHT; PLATELET ESTIMATE ADEQUATE; PLATELET MORPHOLOGY COMMENT NORMAL; RBC MORPHOLOGY COMMENT NORMAL
[2023-03-16] MEDS ORDERED: ONDANSETRON HCL 4 MG ORAL DISINTEGRATING TAB PO PRN (10:00)
[2023-03-16 15:32] LABS: CREATINE KINASE 54 IU/L (29-168)
[2023-03-16] MEDS ORDERED: ENOXAPARIN 30 MG/0.3 ML SYR SC SCH (17:00)
[2023-03-16] MEDS ORDERED: ENOXAPARIN SOD INJ 40 MG/0.4 ML SYR SC SCH (17:00)
[2023-03-16] MEDS: MELATONIN 3 MG TAB PO SCH (23:05)
[2023-03-17] VITALS (9 sets, daily range): BP systolic 125–152; BP diastolic 67–76; PULSE 67–85; RESP 16–22; TEMP 97.5–98.5; O2SAT 93–99
[2023-03-17] MEDS: ALBUTEROL/IPRATROPIUM 3 ML NEB NEB SCH ×3 (03:19→10:11)
[2023-03-17 05:34] LABS: BASOPHILS % 0.5 % (0.0-1.0); EOSINOPHILS # (AUTO) 0.3 (0.0-0.4); EOSINOPHILS % 4.8 % (0.0-6.0); HEMATOCRIT 25.4 % (34.2-44.1); HEMOGLOBIN 8.5 g/dL (12.0-16.0); LYMPHOCYTES # (AUTO) 1.9 (1.0-3.2); LYMPHOCYTES % 30.8 % (18.0-39.1); MEAN CORPUSCULAR HGB CONC 33.5 g/dL (31-35); MEAN CORPUSCULAR VOLUME 62.9 fL (81-99); MONOCYTES # (AUTO) 0.5 (0.2-0.8); MONOCYTES % 8.4 % (4.4-11.3); NEUTROPHILS # (AUTO) 3.4 (2.1-6.9); NEUTROPHILS % 55.2 % (38.7-80.0); PLATELET COUNT 329 x10e3/uL (140-360); RED BLOOD COUNT 4.04 x10e6/uL (3.6-5.1); WHITE BLOOD COUNT 6.21 x10e3/uL (4.8-10.8)
[2023-03-17] MEDS: LEVOTHYROXINE SODIUM 25 MCG TABLET PO SCH (05:56)
[2023-03-17 06:13] LABS: ANION GAP 12.5 mmol/L (8-16); CALCIUM 9.1 mg/dL (8.4-10.2); CREATININE, SERUM 0.81 mg/dL (0.57-1.11); POTASSIUM 3.5 mmol/L (3.5-5.1)
[2023-03-17] MEDS: BENZONATATE 100 MG CAP PO SCH (07:54)
[2023-03-17] MEDS: LOSARTAN POTASSIUM 25 MG TAB PO SCH (07:54)
[2023-03-17] MEDS: PANTOPRAZOLE SOD 40 MG TABEC PO SCH (07:54)
[2023-03-17] MEDS: POLYETHYLENE GLYCOL 3350 17 GM PACK PO SCH (07:55)
[2023-03-17] MEDS: AZITHROMYCIN 250 MG TAB PO SCH (07:55)
[2023-03-17] MEDS ORDERED: LEVOFLOXACIN250 MG PO (11:59)
[2023-03-17] MEDS ORDERED: FOSFOMYCIN TROMETHAMINE 3 GM PACKET PO ONE (12:30)
[2023-03-17] MEDS ORDERED: LEVOFLOXACIN 500 MG TAB PO SCH (12:30)
== END 2023-03-17 14:02 | disposition home or self-care (01) | DRG 194 ==
LOC: ER 13:46 → ERHOLD 18:37 → MED/SURG3 03-16 03:17
PROVIDERS: ADMIT Internal Medicine; ATTEND Internal Medicine
DX: J18.9 Pneumonia, unspecified organism (principal); N39.0 Urinary tract infection, site not specified; H91.90 Unspecified hearing loss, unspecified ear; J18.1 Lobar pneumonia, unspecified organism; K21.9 Gastro-esophageal reflux disease without esophagitis; D64.9 Anemia, unspecified; E78.2 Mixed hyperlipidemia; E03.9 Hypothyroidism, unspecified; R05.1 Acute cough; M81.0 Age-related osteoporosis without current pathological fracture; J45.909 Unspecified asthma, uncomplicated; J43.2 Centrilobular emphysema; I27.21 Secondary pulmonary arterial hypertension; B96.20 Unspecified Escherichia coli [E. coli] as the cause of diseases classified elsewhere; Z85.850 Personal history of malignant neoplasm of thyroid; Z85.3 Personal history of malignant neoplasm of breast; Z90.2 Acquired absence of lung [part of]; Z92.21 Personal history of antineoplastic chemotherapy; Z20.822 Contact with and (suspected) exposure to COVID-19
CPT/HCPCS: 0223U; 36415; 71045; 71260; 80048; 80053; 81001; 82550; 82728; 83518; 83540; 83880; 84466; 84484; 85025; 87040; 87070; 87086; 87186; 87400; 87449; 93005; 94640; 94799; 99284; J0696; J1650; J1956; J7030; Q9967

== ENCOUNTER 2024-04-25 08:49 | Emergency (ER) | payer MEDICARE ==
[~2024-04-25] VITALS: Ht 160 cm; Wt 59.6 kg
[~2024-04-25 08:49] MED LIST changes: +BLINK TEARS15 ML OU; +FERROUS SULFAT324 MG PO; +LEVOFLOXACIN250 MG PO; +NITROFURANTOIN100 M1 PO
[2024-04-25 09:04] VITALS: PULSE 80; RESP 16; TEMP 97.5; O2SAT 95
[2024-04-25] MEDS ORDERED: TRIAMCINOLONE A15 G1 TOP (09:26)
== END 2024-04-25 09:33 | disposition home or self-care (01) ==
LOC: FSED 09:12
DX: L23.7 Allergic contact dermatitis due to plants, except food (principal); I10 Essential (primary) hypertension; J44.9 Chronic obstructive pulmonary disease, unspecified; E78.5 Hyperlipidemia, unspecified; E03.9 Hypothyroidism, unspecified; K21.9 Gastro-esophageal reflux disease without esophagitis; Z85.3 Personal history of malignant neoplasm of breast; Z85.118 Personal history of other malignant neoplasm of bronchus and lung; Z85.818 Personal history of malignant neoplasm of other sites of lip, oral cavity, and pharynx
CPT/HCPCS: 99283

== ENCOUNTER → 2024-08-03 | Outpatient (REF) | payer MEDICARE ==
[~2024-08-03] MED LIST changes: +TRIAMCINOLONE A15 G1 TOP
== END ==
LOC: RAD 11:14
PROVIDERS: ATTEND Internal Medicine
DX: J20.8 Acute bronchitis due to other specified organisms (principal)
CPT/HCPCS: 71046

== ENCOUNTER → 2024-11-30 | Outpatient (REF) | payer MEDICARE | LOC: CT 12:22 | PROVIDERS: ATTEND Internal Medicine Critical Care Medicine | DX: J44.9 Chronic obstructive pulmonary disease, unspecified (principal); R05.9 Cough, unspecified; Z85.118 Personal history of other malignant neoplasm of bronchus and lung | CPT/HCPCS: 71250 ==